=== PATIENT | male | born 1960 | race Caucasian/White ===

== ENCOUNTER 2023-02-11 10:45 | Inpatient (IN) | payer OTHER, SELFPAY ==
[2023-02-11] VITALS (24 sets, daily range): BP systolic 111–157; BP diastolic 50–70; PULSE 68–95; RESP 16–26; TEMP 36.6–36.8; O2SAT 58–100; BMI 41.5
--- NOTE | ~2023-02-11 | XR_ITS ---
XR chest 1V portable 02/11/2023 11:43 Indication: Shortness of breath Procedure: AP portable chest Comparison: No prior studies for comparison. Findings: Cardiomegaly with pulmonary edema. Small right effusion. No pneumothorax. No acute osseous abnormality. Impression: 1: Cardiomegaly with pulmonary edema. Reviewed, dictated and finalized at location [facility] Impression: 1: Cardiomegaly with pulmonary edema.
--- NOTE | ~2023-02-11 | CT_ITS ---
Clinical Indication: Shortness of breath CT Scan of the Chest with Contrast: Technique: Contiguous sections were acquired throughout the chest after intravenous administration of 100 cc of Omnipaque 350. Dose reduction technique was used on this scan by utilizing automated expos ure control and iterative reconstruction technique. The dose-length product (DLP) was 1070.85 mGy-cm. Findings: There is no evidence of any significant mediastinal, hilar or axillary lymphadenopathy. There is no f illing defect in the pulmonary arterial tree to suggest pulmonary embolus. There is no evidence of ao rtic dissection or aneurysm. No pericardial effusion. [id number] right pleural effusion and minimal left pleural effusion present. There is partial right lower lobe atelectasis. There is extensive left lower lobe consolidation, with more mild, patch y airspace disease in the remainder of the pulmonary lobes. Images through the upper abdomen reveal no abnormalities. Impression: Extensive left lung consolidation with more patchy, mild airspace disease in the remainder of the erika gs. Correlate for pulmonary edema/atelectasis versus pneumonia. Pwlvw-kh-wqqslbig right pleural effusion with partial right lower lobe atelectasis. Minimal left pleural effusion. No pulmonary embolus identified. Reviewed, dictated and finalized at [facility]. CRAFTER Impression: Extensive left lung consolidation with more patchy, mild airspace disease in th e remainder of the lungs. Correlate for pulmonary edema/atelectasis versus pneu monia. Jssyr-up-rfmuyijz right pleural effusion with partial right lower lobe atelecta sis. Minimal left pleural effusion. No pulmonary embolus identified.
--- NOTE | 2023-02-11 10:47 | ECG_ITS ---
Measurements Intervals [place] Rate: 97 P: 38 [place]: 155 QRS: -1 QRSD: 144 T: 75 QT: 371 QTc: 473 Interpretive Statements SINUS RHYTHM LEFT BUNDLE BRANCH BLOCK [120+ ms QRS DURATION, 80+ ms Q/S IN V1/V2, 85+ ms R IN I/aVL/V5/V6] LOW VOLTAGE EKG NO PREVIOUS ECG AVAILABLE FOR COMPARISON Electronically Signed On 02-11-2023 19:13:06 PAVER INSTALLER by Mirella Healy M.D.
--- NOTE | 2023-02-11 10:59 | ED.GENADULT ---
HPI - General Adult General Chief complaint: Shortness of Breath/Dyspnea Stated complaint: Respiratory infection Time Seen by Provider: 02/11/23 10:50 History of Present Illness HPI narrative: 62-year-old male presented to ED for evaluation of worsening shortness of breath. Patient reports over the last 3 weeks he has had increased lower extremity edema. Patient has had increased shortness of breath over last few days. Patient began having frothy sputum over the last few days. Patient denies any associated chest pain. Patient does admit to drinking alcohol daily but denies any alcohol withdrawal seizures. Related Data Home Medications Medication Instructions Recorded Confirmed B-complex with vitamin C (Super B 1 tablet PO DAILY 03/30/19 07/14/22 Complex-Vitamin C tablet) ascorbate calcium (vitamin C) 500 500 mg PO DAILY 03/30/19 07/14/22 mg tablet colchicine 0.6 mg tablet (Colcrys) 0.6 mg PO DAILY 03/30/19 07/14/22 magnesium 250 mg tablet 250 mg PO DAILY 03/30/19 07/14/22 multivitamin 1 tablet PO DAILY 03/30/19 07/14/22 omega-3 fatty acids 1,000 mg 1,000 mg PO DAILY 03/30/19 07/14/22 capsule (Fish Oil Concentrate) turmeric 400 mg capsule mg PO 03/30/19 07/14/22 vitamin E (dl, acetate) 450 mg 1,000 unit PO DAILY 03/30/19 07/14/22 (1,000 unit) capsule Allergies Allergy/AdvReac Type Severity Reaction Status Date / Time No Known Allergies Allergy Mild Verified 07/14/22 13:59 Review of Systems Review of Systems: All systems reviewed & are unremarkable except as noted in HPI and below PMFSH Past Medical History Medical History Elevated PSA Surgical History Surgical History History of appendectomy History of arthroscopic knee surgery bilateral Family History Family History Father Hypertension Malignant neoplasm of prostate Mother Hypertension Sibling Family history of diabetes mellitus in first degree relative Patient's sister is in good health Patient's brother is in good health Social History Social History Smoking status: Never smoker Second hand tobacco smoke exposure: No Alcohol intake: current Drinks per week: 84 Alcohol use details: beer Substance use: never Substance use type: does not use Living arrangements: with family Occupation/Education: retired Gender identity (if verbalized by the patient): Male Exam Narrative: APPEARANCE: Respiratory distress upon arrival HEAD: normocephalic, atraumatic. EYES: PERRLA/EOMI, conjunctivae clear. NOSE: Normal no drainage EARS:TMS clear with good light reflex. THROAT: Pharynx clear, no exudate. NECK: Supple. No adenopathy, no masses. RESPIRATORY: rhonchi bilaterally CARDIOVASCULAR: Regular rate and rhythm without murmurs rubs or gallops. ABDOMINAL: Soft, nontender, nondistended, normal bowel sounds MUSCULOSKELETAL: Moves all extremities. lower extremity edema bilaterally NEURO: Alert. Cranial nerves II through XII intact. grossly intact SKIN: Warm, dry. Normal Color Course Course Emergency Course: 62-year-old male presenting to the ED for evaluation of worsening shortness of breath. Upon arrival to emergency department patient has had significant rhonchi and increased work of breathing. ABG was ordered and patient was placed on BiPAP. Patient did feel improved with treatment. Patient was afebrile with no leukocytosis but a stable hemoglobin of 12.2. Patient's D-dimer was elevated at 0.81. No significant abnormalities on his ABG. Hyponatremia on the CMP and an elevated BNP. Patient did test positive for influenza a but was negative for RSV and for COVID. CTA was negative for pulmonary embolism but did show evidence pleural effusions along with pulmonary edema. Patient was treated
[2023-02-11 11:17] LABS: Alveolar/Arterial O2 Gradient 92.6 mmHg; Base Excess ABG 0.2 mEq/l (+/-2.0); Carboxyhemoglobin 1.1 % THb (0-2.0); Device BIPAP; Fractional Inspired Oxygen 30 %; HCO3 ABG 25.4 mEq/l (22.0-26.0); Methemoglobin ABG 0.3 %THb (0-1.5); Modified Allen's Test Pass; Oxygen Content ABG 17.2 %vol (16.0-22.0); Oxygen Saturation ABG 93.9 % (95.0-100.0); Oxyhemoglobin 91.9 % THb (90.0-100.0); PCO2 ABG 43.5 mmHg (35.0-45.0); PO2 ABG 70.2 mmHg (80.0-100.0); PO2 FiO2 Ratio Arterial Blood 2.34 %; Reduced Hemoglobin 6.7 %THb (0-5.0); Site Drawn RIGHT RADIAL; Total Hemoglobin 13.3 g/dL (12.0-18.0); pH ABG 7.385 (7.350-7.450)
[2023-02-11 11:18] LABS: Expiratory Pressure 7 cmH2O; Inspiratory Pressure 14 cmH2O
[2023-02-11 11:24] LABS: Basophils Percent Auto 0.2 % (0.2-1.2); Hematocrit 36.4 % (42.0-52.0); Hemoglobin 12.2 g/dL (14.0-18.0); Immature Granulocyte Absolute 0.01 K/mm3 (0.00-0.031); Immature Granulocyte Percent A 0.2 % (0-0.5); Immature Platelet Fraction Pct 3.7 % (0.9-11.2); Lymphocytes Absolute Auto 0.61 K/mm3 (0.9-3.2); Lymphocytes Percent Auto 11.8 % (18.3-44.2); Mean Corpuscular HGB Conc 33.5 g/dl (32-36); Mean Corpuscular Hemoglobin 32.4 pg (26-34); Mean Corpuscular Volume 96.8 fl (80-100); Mean Platelet Volume 10.3 fl (7.4-10.4); Monocytes Absolute Auto 0.7 K/mm3 (0.1-0.6); Monocytes Percent Auto 14.1 % (2.6-8.5); Neutrophils Absolute Auto 3.8 K/mm3 (1.3-6.7); Neutrophils Percent Auto 73.7 % (45.5-73.1); Platelet Count Result 109 k/mm3 (150-375); Red Blood Count 3.76 M/mm3 (4.6-6.20); Red Cell Distribution Width 13.2 % (11.5-14.5); White Blood Count 5.2 K/mm3 (4.5-10.0)
[2023-02-11 11:31] LABS: Alanine Aminotransferase 29 U/L (6-50); Albumin Level 4.2 g/dL (3.5-5.1); Alkaline Phosphatase 79 U/L (38-126); Anion Gap 9 mmol/L (8-16); Aspartate Amino Transferase 70 U/L (17-59); Bilirubin,Total 1.8 mg/dL (0.2-1.3); Blood Urea Nitrogen 12 mg/dL (9-20); Calcium 8.9 mg/dL (8.4-10.2); Carbon Dioxide 25 mmol/L (22-30); Chloride 92 mmol/L (98-107); Estimated CRCL calculation 146 ml/min; Estimated Glomerular Filt Rate > 60; Glucose 111 mg/dL (65-110); Potassium 4.5 mmol/L (3.4-5.0); Sodium 126 mmol/L (137-145)
[2023-02-11] MEDS: NITROGLYCERIN OINTMENT 1 INCH DOSE TRANSDERM (11:32)
[2023-02-11 11:57] LABS: Influenza A QL RT-PCR Positive (Negative); Influenza B QL RT-PCR Negative (Negative); RSV RNA, RT-PCR Negative (Negative); SARS-CoV-2 RNA PCR Negative (Negative)
[2023-02-11] MEDS: FUROSEMIDE INJ 40 MG/4 ML VIAL IV PUSH ×2 (13:49→20:43)
--- NOTE | 2023-02-11 13:51 | PC.NURSE ---
placed non rebreather per ERP for CT, lasix given per ERP. Pt tolerating non rebreather
[2023-02-11 14:05] LABS: D Dimer 0.81 ug/mL (<0.48)
--- NOTE | 2023-02-11 14:15 | PC.NURSE ---
pt wanted to sit on edge of the bed because he reports his back and buttocks hurt on cot. Both recliners in the ED are occupied at this time pt wants to sit in wc.
[2023-02-11 14:16] LABS: NT Pro B Type Natriuretic Pept 2110 pg/mL (19.9-100)
--- NOTE | 2023-02-11 14:50 | ECG_ITS ---
Measurements Intervals [place] Rate: 86 P: -16 [place]: 104 QRS: 20 QRSD: 146 T: 32 QT: 394 QTc: 473 Interpretive Statements SINUS RHYTHM WITH SHORT [place] INTERVAL LEFT BUNDLE BRANCH BLOCK [120+ ms QRS DURATION, 80+ ms Q/S IN V1/V2, 85+ ms R IN I/aVL/V5/V6] COMPARED TO ECG 02/11/2023 11:00:39 NO SIGNIFICANT CHANGES Electronically Signed On 02-11-2023 19:18:22 SALES ENABLEMENT ANALYST by Mirella Healy M.D.
--- NOTE | 2023-02-11 14:51 | PC.NURSE ---
repeat EKG due to rhythm change on monitor in room 22
--- NOTE | 2023-02-11 16:00 | PC.NURSE ---
recliner available pt moved from wc to recliner for his comfort, no distress.
--- NOTE | 2023-02-11 16:46 | PM.IMHP ---
H&P: HPI History of Present Illness Date/Time: 02/11/23 16:46 Chief Complaint: SOB, Cough Narrative: 62 y/o M presents here with SOB, cough, and BLE edema with PMH of HTN, gout, and ETOH abuse/fatty liver. Patient reports intermittent productive cough and SOB that has worsened and become more consistent, started on Thursday 02/08. Reported body aches. Denied fever, chills, chest pain or palpitations. Initially cough was dry, now producing frothy pink sputum. Has also been experiencing worsening bilateral lower extremity edema for the past 3-6 months, initially intermittent but now more constant in the last 2-3 weeks. ED workup revealed patient to be positive for flu A. CXR showed cardiomegaly with pulmonary edema. CTA of chest showed extensive L sided consolidation - pulm edema v pna, PE ruled out. Lab work showed mild anemia, hyponatremia at 126, and an elevated BNP of 2110. No prior history of congestive heart failure. Does report chronic alcohol use, 12-18 beers daily. Had recent bout of illness a few weeks ago where he was unable to drink. Did experience visual hallucinations. States that his last drink was on Wednesday, 02/08. Currently denying nausea, vomiting, diarrhea, tremors, or hallucinations. Review of Systems Review of Systems: All systems reviewed & are unremarkable except as noted in HPI and below PMFSH Past Medical History Medical History Blow-out fracture of orbital floor Chronic gout without tophus Elevated PSA Erectile dysfunction Essential (primary) hypertension ETOH abuse Fatty liver IFG (impaired fasting glucose) Surgical History Surgical History History of appendectomy History of arthroscopic knee surgery bilateral Family History Family History Father Hypertension Malignant neoplasm of prostate Mother Hypertension Sibling Family history of diabetes mellitus in first degree relative Patient's sister is in good health Patient's brother is in good health Social History Social History Social History: Currently lives at home mostly alone. Currently from , she will still occasionally stay with him. Elects his daughter, Dena Raines as his surrogate decision maker. May also contact his current spouse, Savanah Hart. Son, Wilber Raines may also receive information. Code Status: Full Code. Smoking status: Never smoker Second hand tobacco smoke exposure: No Alcohol intake: current Drinks per week: 60 Alcohol use details: beer Substance use: never Substance use type: does not use Last use: pt stated last drink was Wednesday- pt drinks @ 60 beers and sometimes tequila Lack of Transportation: No Lack of Food: Never True Current Housing: I Have Housing Concerned About Future Housing: No Difficulty Paying Gas/Electric Bills: No Difficulty Paying for Meds: No Currently Unemployed: No Education: High School Diploma/GED Difficulty w/ Childcare or Family Care: No Living arrangements: with family Occupation/Education: retired Gender identity (if verbalized by the patient): Male Spiritual care concerns: No Meds Home Medications and Allergies Home Medications Medication Instructions Recorded Confirmed Type turmeric 400 mg capsule 400 mg PO WEEKLY 03/30/19 02/11/23 History sildenafil 100 mg tablet See Rx Instructions .Route 12/30/21 02/11/23 Rx .COMPLEX #9 tabs allopurinol 100 mg tablet 100 mg PO QPM 02/11/23 02/11/23 History amlodipine 10 mg tablet 10 mg PO QPM 02/11/23 02/11/23 History lisinopril 20 mg tablet 20 mg PO QPM 02/11/23 02/11/23 History Allergies Allergy/AdvReac Type Severity Reaction Status Date / Time No Known Allergies Allergy Mild Verified 07/14/22 13:59 Vital Signs Vital Signs - 24
--- NOTE | 2023-02-11 17:52 | PC.NURSE ---
pt to IMU via wc with registered nurse cardiac, BIPAP and tech. Pt is A/O x 4, no distress, skin pwd. Pt asked to send to new room when she comes back to the ED
--- NOTE | 2023-02-11 18:20 | ADMGEN ---
This patient, Edwin Raines, was admitted to IMU Room 201-01. Patient/family oriented to hospital policies and general routines including ID bracelet, bed and alarms, visiting hours, pain management, procedures, bathroom and other care routines, personal items, smoking policy, room service/diet, and visiting hours. Information on how to activate the Rapid Response Team has been discussed. Patient/Family are encouraged to report perceived risks to care and to ask questions if they do not understand what they are told or what they should do.
[2023-02-11 23:30] LABS: Alveolar/Arterial O2 Gradient 138.3 mmHg; Base Excess ABG 4.2 mEq/l (+/-2.0); Fractional Inspired Oxygen 40 %; HCO3 ABG 28.4 mEq/l (22.0-26.0); Oxygen Content ABG 17.2 %vol (16.0-22.0); Oxygen Saturation ABG 97.8 % (95.0-100.0); Oxyhemoglobin 96.7 % THb (90.0-100.0); PCO2 ABG 41.2 mmHg (35.0-45.0); PO2 ABG 99.5 mmHg (80.0-100.0); PO2 FiO2 Ratio Arterial Blood 2.49 %; Total Hemoglobin 12.6 g/dL (12.0-18.0); pH ABG 7.457 (7.350-7.450)
[2023-02-11 23:31] LABS: Modified Allen's Test Pass; Site Drawn RIGHT RADIAL
[2023-02-11 23:32] LABS: Device NON-INVASIVE VENT; Non-Invasive Expiratory Pressure 7 CMH2O; Non-Invasive Inspiratory Pressure 14 CMH2O; Non-Invasive Vent Rate 4 /MIN
[2023-02-12] VITALS (28 sets, daily range): BP systolic 111–138; BP diastolic 58–74; PULSE 82–103; RESP 18–22; TEMP 36.6–37.3; O2SAT 91–100
--- NOTE | 2023-02-12 | ECHO_ITS ---
Patient Info Name: Edwin Raines Age: 62 years : 1960 Gender: Male Ht: 70 in Wt: 289 lbs BSA: 2.60 m2 HR: 93 bpm BP: 111 / 60 mmHg Heart Rhythm: Sinus Rhythm Technical Quality: Fair Exam Date: 02/12/2023 1:42 PM Exam Location: Echo Lab Patient Status: Inpatient Admit Date: 02/11/2023 Staff Ordering Physician: Mai Sandoval APRN Emergency Medical Dispatcher: Dayanara Centeno RDCS Attending Provider: Erica Martinez MD Referring Physician: Jaime NORRIS; Exam Type: CA echo dop color flow w con Study Info Indications - elevated BNP c/f HF R06.02 - Shortness of breath Complete two-dimensional, color flow and Doppler transthoracic echocardiogram is performed with contrast to opacify the left ventricle and to improve the deliniation of the left ventricle endocardial borders. Contrast/Agitated Saline Contrast/Ag. Saline: Definity Amount: 2.00 ml Administered By: Dayanara Centeno RDCS Existing IV Access: Yes IV Access Condition: patent with no signs of infiltration Summary 1. Technically difficult echocardiogram because of obesity. 2. Definity contrast used to improve visualization. 3. Left ventricular hypertrophy with normal size and preserved systolic function with diastolic non compliance. 4. Mild left atrial enlarged. 5. No significant valvular dysfunction. Left Ventricle Left ventricular chamber dimension is normal. Left ventricular systolic function is normal, estimated at 60-65%. The left ventricular diastolic function is grade II diastolic dysfunction. Right Ventricle Right ventricular chamber dimension is normal. Left Atria Left atrial chamber dimension is mildly enlarged. Right Atria Right atrial chamber dimension is not well visualized. Aortic Valve The aortic valve is normal. Pulmonic Valve The pulmonic valve is not well visualized. Mitral Valve The mitral valve has normal leaflets. Tricuspid Valve The tricuspid valve leaflets are not well visualized. Pericardium/Pleural The pericardium appears normal. Aorta The aortic root size at the sinus of Valsalva is normal. Left Ventricular Outflow Tract Name Value Normal LVOT 2D LVOT Diameter 1.97 cm LVOT Doppler LVOT Peak Gradient 9 mmHg LVOT Mean Gradient 5 mmHg LVOT VTI 24.15 cm LVOT VTI/AV VTI Ratio 0.92 LVOT Stroke Volume 73.64 ml LVOT CO 6.94 l/min LVOT CI 2.67 L/min/m2 Pulmonic Valve Name Value Normal RVOT Doppler RVOT Peak Gradient 5 mmHg PV Doppler PV Peak Gradient 10 mmHg Mitral Valve Name Value
[2023-02-12 00:08] LABS: Glucose Point of Care 90 mg/dl (65-105)
[2023-02-12 00:40] LABS: Lactic Acid Reflex 0.9 mmol/L (0.7-2.0)
[2023-02-12 01:01] LABS: Erythrocyte Sedimentation Rate 47 mm/hr (0-20)
[2023-02-12] MEDS: AZITHROMYCIN 500 MG/NS 250 ML 500 MG/250 ML BAG 250 MG IVPB (01:37)
[2023-02-12 01:51] LABS: Iron 32 ug/dL (49-181)
[2023-02-12 01:55] LABS: CRP 2.3 mg/dL (<1.0); Magnesium 1.9 mg/dL (1.6-2.3)
[2023-02-12 02:00] LABS: Percent Iron Saturation 10 % (20-50)
[2023-02-12 02:14] LABS: Creatinine Urine 50.9 mg/dL; Total Protein Urine Random 11 mg/dL; Ur Ttl Prot Creatinine Ratio 0.22 mg/mg (0-0.20)
[2023-02-12 02:20] LABS: Sodium Urine Random 54 meq/L
[2023-02-12] MEDS: ALBUTEROL SULFATE NEB 2.5 MG/3 ML INH INHALATION ×4 (02:38→20:04)
[2023-02-12] MEDS: IPRATROPIUM BR 0.02% INH SOLN 0.5 MG/2.5 ML VIAL INHALATION ×4 (02:38→20:04)
[2023-02-12 02:58] LABS: Folic Acid 5.9 ng/mL (2.76->20)
[2023-02-12 04:49] LABS: Basophils Percent Auto 0.5 % (0.2-1.2); Hematocrit 35.4 % (42.0-52.0); Hemoglobin 11.7 g/dL (14.0-18.0); Immature Granulocyte Absolute 0.02 K/mm3 (0.00-0.031); Immature Granulocyte Percent A 0.5 % (0-0.5); Immature Platelet Fraction Pct 3.5 % (0.9-11.2); Lymphocytes Absolute Auto 0.37 K/mm3 (0.9-3.2); Lymphocytes Percent Auto 9.3 % (18.3-44.2); Mean Corpuscular HGB Conc 33.1 g/dl (32-36); Mean Corpuscular Hemoglobin 31.9 pg (26-34); Mean Corpuscular Volume 96.5 fl (80-100); Mean Platelet Volume 9.8 fl (7.4-10.4); Monocytes Absolute Auto 0.5 K/mm3 (0.1-0.6); Monocytes Percent Auto 13.6 % (2.6-8.5); Neutrophils Percent Auto 76.1 % (45.5-73.1); Platelet Count Result 108 k/mm3 (150-375); Red Blood Count 3.67 M/mm3 (4.6-6.20); Red Cell Distribution Width 13.1 % (11.5-14.5)
[2023-02-12 05:06] LABS: Alanine Aminotransferase 27 U/L (6-50); Albumin Level 3.8 g/dL (3.5-5.1); Alkaline Phosphatase 77 U/L (38-126); Anion Gap 8 mmol/L (8-16); Aspartate Amino Transferase 70 U/L (17-59); Bilirubin,Total 1.5 mg/dL (0.2-1.3); Blood Urea Nitrogen 15 mg/dL (9-20); Calcium 8.7 mg/dL (8.4-10.2); Carbon Dioxide 27 mmol/L (22-30); Chloride 93 mmol/L (98-107); Cholesterol 108 mg/dL (0-200); Estimated CRCL calculation 144 ml/min; Estimated Glomerular Filt Rate > 60; Glucose 87 mg/dL (65-110); HDL Direct 44 mg/dL; Magnesium 1.8 mg/dL (1.6-2.3); Potassium 3.6 mmol/L (3.4-5.0); Sodium 128 mmol/L (137-145); Triglycerides 70 mg/dL (<150)
[2023-02-12 05:16] LABS: LDL Cholesterol Direct 43 mg/dL
[2023-02-12] MEDS: FOLIC ACID 1 MG TABLET PO (10:01)
[2023-02-12] MEDS: ENOXAPARIN 40 MG/0.4 ML SYRINGE SUB-Q (10:01)
[2023-02-12] MEDS: FUROSEMIDE INJ 40 MG/4 ML VIAL IV PUSH ×2 (10:01→23:00)
[2023-02-12] MEDS: OSELTAMIVIR PHOSPHATE 75 MG CAPSULE PO ×2 (10:02→23:00)
[2023-02-12] MEDS: THIAMINE HCL 200 MG/2 ML VIAL 100 MG IV PUSH (10:02)
[2023-02-12 12:35] LABS: Glucose Point of Care 104 mg/dl (65-105)
[2023-02-12] MEDS: PERFLUTREN LIPID MICROSPHERES 1.5 ML VIAL DILUTED TO 10 ML TOTAL VOLUME IV PUSH (14:00)
--- NOTE | 2023-02-12 14:20 | PM.CNCAR ---
Assessment and Plan Assessment and plan (1) ETOH abuse: Code(s): F10.10 - Alcohol abuse, uncomplicated Status: Acute (2) Essential (primary) hypertension: Code(s): I10 - Essential (primary) hypertension Status: Acute (3) CHF (congestive heart failure): Code(s): I50.9 - Heart failure, unspecified Status: Acute Plan 62-year-old man with hypertension with poor compliance with medical control as well as ethanol excess presents with symptoms of marked lower extremity edema pulmonary congestion and enlargement of the cardiothoracic silhouette on chest x-ray. He appears to have biventricular congestive heart failure. This could easily be a hypertensive myopathy as he apparently has poor compliance with medical therapy. Alcoholic cardiomyopathy of course is also in the differential diagnosis given his excessive drinking of beer. At this time I would continue intravenous furosemide. Echocardiogram was performed to short time ago which I have yet to have read. We will optimize medical therapy for his CHF pending those results. Obviously strict compliance to medication as well as alcohol cessation are extremely important in effective treatment of this patient's congestive heart failure. Diego Gonzales MD [facility] History of Present Illness History of Present Illness Consult date/time: 02/12/23 14:20 Reason For Visit: PULMOONARY EDEMA,RESPIRATORY DISTRESS Narrative: This is a 62-year-old man I am seeing at the request of the hospitalist because of congestive heart failure. The patient is unknown to me prior to this consultation and is not known to have any cardiac problems for what he tells me. This is a gentleman who is morbidly obese he has hypertension and a history of ethanol excess. He receives his medical care from Dr. Pathak and according to those notes he takes his hypertension medication unreliably. He says that he went to the emergency room yesterday because he was feeling poorly he thought he had a virus such as the flu and he also was noticing worsening bilateral lower extremity edema for about 6 months and he thought he would have that checked out while he was there. He does not report that he has significantly concerned about being short of breath he says he does have some chronic dyspnea that he has attributed in the past obesity but that does not seem to be any worse than baseline. In the emergency room he was found to have marked lower extremity edema as well as morbid obesity he has electrocardiogram demonstrating a left bundle branch block with sinus rhythm his chest x-ray appears to show enlargement of the cardiac silhouette as well as pulmonary congestion diffusely in both lung cuevas. He reports a history of excessive alcohol drinking he typically consumes 12 pack of beer per day. 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 He is and has grown children and a number of grandchildren. Review of Systems Constitutional: Constitutional: Reports weakness Eyes: Eyes: Reports no additional eye complaints ENT: Reports system reviewed and no additional complaints, except as documented Cardiovascular: Cardiovascular: Reports pedal edema and Reports leg edema Respiratory: Respiratory: Reports dyspnea on exertion Gastrointestinal: Gastrointestinal: Reports no additional gastrointestinal complaints Musculoskeletal: Musculoskeletal: Reports no additional musculoskeletal complaints Integumentary/Breasts: Skin/Breast: Reports system reviewed and no additional complaints, except as docu Neurologic: Reports system reviewed and no additional complaints, except as documented Endocrine: Endocrine: Reports no additional endocrine complaints Hematologic/Lymphatic: Hematologic/Lymphatic: Reports no additional hematologic/lymphatic complaints Allergic/Immunologic: Allergic/Immunologic: Reports no additional allergic/immunologic complaints [facility]
--- NOTE | 2023-02-12 14:56 | IVDEFINITY ---
Prior to administration of IV Definity the patient was educated on the risks and benefits of the imaging enhancing agent including potential adverse side effects. The patient verbalized understanding. Allergies were verified. No exclusion criteria were identified and at least one of the following inclusion criteria were met: 1) physician request, 2) patient technically difficult to image (per the [place] [employer] Echocardi[employer] guidelines of two or more segments not discernable within the apical view), or 3) questionable left ventricular function. ?
[2023-02-12] MEDS: allopurinoL 100 MG TABLET PO (18:33)
[2023-02-12] MEDS: amLODIPine BESYLATE 5 MG TABLET 10 MG PO (18:34)
[2023-02-12] MEDS: lisinopriL 20 MG TABLET PO (18:34)
--- NOTE | 2023-02-12 19:23 | PM.IMPN ---
Progress Note: A&P Assessment and Plan (1) Acute respiratory distress: Code(s): R06.03 - Acute respiratory distress Status: Acute Assessment and Plan: Patient presents to the emergency room with complaints of shortness of breath. ER noted that the patient was in respiratory distress upon arrival. Chest x-ray shows cardiomegaly with pulmonary edema. CTA of the chest shows extensive left lung consolidation with more patchy mild airspace disease in the remainder the lungs, small to moderate right pleural effusion with atelectasis in the right lower lobe. Minimal left pleural effusion. No PE. ABG 7.38/43/70 on BiPAP. Most likely multifactorial from influenza, bacterial pneumonia and CHF. Patient has been weaned to nasal cannula. Continue antibiotics. Continue antiviral treatments and continue diuretics. Continue to wean oxygen as tolerated. (2) CHF (congestive heart failure): Code(s): I50.9 - Heart failure, unspecified Status: Acute Assessment and Plan: Imaging as mentioned above. BNP 2110. No troponins drawn. He has been started on IV Lasix. Urine output yesterday was 2750 mL. Urine output today is inaccurate. Echocardiogram shows LV hypertrophy with preserved systolic function and grade 2 diastolic dysfunction. Patient with acute diastolic CHF. Clinically improved. Continue Lasix. (3) Pneumonia: Code(s): J18.9 - Pneumonia, unspecified organism Status: Acute Assessment and Plan: CT the chest as mentioned above. He has influenza so consider post viral pneumonia. Blood cultures are pending He has been started on Rocephin and azithromycin. Will add vancomycin today. Check sputum and urine antigens. Check for MRSA. (4) Influenza A: Code(s): J10.1 - Influenza due to other identified influenza virus with other respiratory manifestations Status: Acute Assessment and Plan: Patient's onset of symptoms were 3 days prior to admission. Although he is outside the 48 hour window, patient was severely ill on presentation. Tamiflu is warranted in this situation. Tamiflu started. Symptomatic care (5) ETOH abuse: Code(s): F10.10 - Alcohol abuse, uncomplicated Status: Acute Assessment and Plan: Daily drinke consuming 12-18 beers daily and occasionally hard alcohol. Last drink was Thursday 02/08. Has previously experienced visual hallucinations with cessation. CIWA protocol initiated and score at 1 Continue thiamine and folic acid supplement. Librium and Ativan available as needed (6) Hyponatremia: Code(s): E87.1 - Hypo-osmolality and hyponatremia Status: Acute Assessment and Plan: Sodium 126 on admission. Suspect related to fluid overload. Sodium better with diuresis. Monitor (7) Anemia: Qualifiers: Anemia type: unspecified type Qualified Code(s): D64.9 - Anemia, unspecified Code(s): D64.9 - Anemia, unspecified Status: Acute Assessment and Plan: Hemoglobin 12.2 and was previously 15.4 on 01/27/22. WBC low today at 4000 and Plt count low at 108K. Could be chronic from underlying liver disease and/or acute from viral illness and/or from alcohol toxicity B12 and folate levels okay. He does have iron deficiency Follow Add iron. Check stool guaiac. Add PPI (8) Essential (primary) hypertension: Code(s): I10 - Essential (primary) hypertension Status: Acute Assessment and Plan: Patient's blood pressure was reviewed on 02/12 Blood pressure remains well controlled. Will continue current medications. (9) Left bundle branch block: Code(s): I44.7 - Left bundle-branch block, unspecified Status: Acute Assessment and Plan: EKG in 2019 did not show bundle branch block. No other EKGs to compare. Echo as mentioned above Plan Home Meds/Chronic Conditions - gout: continue home allopurinol - supplements/OTC: continue
[2023-02-12] MEDS: PANTOPRAZOLE SODIUM IV 40 MG VIAL IV PUSH (23:00)
[2023-02-12] MEDS: VANCOMYCIN 1,250 MG/NS 250 ML 1,250 MG/250 ML BAG 166.67 MG IVPB ×2 (23:01)
[2023-02-12] MEDS: WATER FOR IRRIGATION, STERILE 1,000 ML BOTTLE 1000 ML (23:01)
[2023-02-12] MEDS: SALINE 0.65% NAS SOLN 44 ML BTL 1 SPRAY NASAL (23:06)
[2023-02-13] VITALS (26 sets, daily range): BP systolic 115–145; BP diastolic 51–69; PULSE 81–98; RESP 16–20; TEMP 35.8–37.2; O2SAT 86–100
[2023-02-13 00:26] LABS: Glucose Point of Care 99 mg/dl (65-105)
[2023-02-13 01:05] LABS: MRSA (PCR) NOT DETECTED (NOT DETECTE)
[2023-02-13] MEDS: ALBUTEROL SULFATE NEB 2.5 MG/3 ML INH INHALATION ×4 (01:49→20:06)
[2023-02-13] MEDS: IPRATROPIUM BR 0.02% INH SOLN 0.5 MG/2.5 ML VIAL INHALATION ×4 (01:49→20:06)
[2023-02-13] MEDS: AZITHROMYCIN 500 MG/NS 250 ML 500 MG/250 ML BAG 250 MG IVPB (02:30)
[2023-02-13 05:07] LABS: Basophils Percent Auto 0.6 % (0.2-1.2); Hematocrit 34.1 % (42.0-52.0); Hemoglobin 11.6 g/dL (14.0-18.0); Immature Granulocyte Absolute 0.03 K/mm3 (0.00-0.031); Immature Granulocyte Percent A 0.9 % (0-0.5); Immature Platelet Fraction Pct 3.2 % (0.9-11.2); Lymphocytes Absolute Auto 0.47 K/mm3 (0.9-3.2); Lymphocytes Percent Auto 14.2 % (18.3-44.2); Mean Corpuscular Hemoglobin 32.7 pg (26-34); Mean Corpuscular Volume 96.1 fl (80-100); Mean Platelet Volume 9.4 fl (7.4-10.4); Monocytes Absolute Auto 0.5 K/mm3 (0.1-0.6); Monocytes Percent Auto 14.2 % (2.6-8.5); Neutrophils Absolute Auto 2.3 K/mm3 (1.3-6.7); Neutrophils Percent Auto 70.1 % (45.5-73.1); Platelet Count Result 104 k/mm3 (150-375); Red Blood Count 3.55 M/mm3 (4.6-6.20); Red Cell Distribution Width 12.8 % (11.5-14.5); White Blood Count 3.3 K/mm3 (4.5-10.0)
[2023-02-13 05:23] LABS: Alanine Aminotransferase 26 U/L (6-50); Albumin Level 3.4 g/dL (3.5-5.1); Alkaline Phosphatase 80 U/L (38-126); Anion Gap 8 mmol/L (8-16); Aspartate Amino Transferase 63 U/L (17-59); Bilirubin,Total 1.2 mg/dL (0.2-1.3); Blood Urea Nitrogen 13 mg/dL (9-20); Calcium 8.1 mg/dL (8.4-10.2); Carbon Dioxide 28 mmol/L (22-30); Chloride 92 mmol/L (98-107); Estimated CRCL calculation 143 ml/min; Estimated Glomerular Filt Rate > 60; Glucose 85 mg/dL (65-110); Magnesium 1.7 mg/dL (1.6-2.3); Phosphorus 3.2 mg/dL (2.5-4.5); Sodium 128 mmol/L (137-145)
[2023-02-13] MEDS: OSELTAMIVIR PHOSPHATE 75 MG CAPSULE PO ×2 (09:59→21:09)
[2023-02-13] MEDS: POTASSIUM CHLORIDE 20 MEQ ER TABLET PO (10:00)
[2023-02-13] MEDS: FOLIC ACID 1 MG TABLET PO (10:00)
[2023-02-13] MEDS: POTASSIUM CHLORIDE 20 MEQ ER TABLET 40 MEQ PO (10:00)
[2023-02-13] MEDS: ENOXAPARIN 40 MG/0.4 ML SYRINGE SUB-Q (10:00)
[2023-02-13] MEDS: FERROUS SULFATE 325 MG TABLET DR PO (10:00)
[2023-02-13] MEDS: FUROSEMIDE INJ 40 MG/4 ML VIAL IV PUSH ×2 (10:01→21:11)
[2023-02-13] MEDS: PANTOPRAZOLE SODIUM IV 40 MG VIAL IV PUSH ×2 (10:01→21:11)
[2023-02-13] MEDS: MAGNESIUM SULF 2 GM/WATER 50ML 2 GM/50 ML BAG IVPB (10:01)
[2023-02-13] MEDS: THIAMINE HCL 200 MG/2 ML VIAL 100 MG IV PUSH (10:01)
--- NOTE | 2023-02-13 11:09 | PM.PNCARD ---
Progress Note: A&P Assessment and Plan (1) Acute diastolic CHF (congestive heart failure): Code(s): I50.31 - Acute diastolic (congestive) heart failure Status: Acute Assessment and Plan: Patient with CHF with preserved ejection fraction with significant volume overload. -continue IV diuresis, may switch to p.o. furosemide tomorrow. -optimal blood pressure control. Currently on amlodipine and lisinopril. -may add SGLT 2 inhibitor at the time of discharge for CHFpEF. -patient was advised to be compliant with antihypertensives. Low-salt diet counseling was done. (2) Influenza A: Code(s): J10.1 - Influenza due to other identified influenza virus with other respiratory manifestations Status: Acute Assessment and Plan: Management as per primary team. Currently on oseltamivir. (3) ETOH abuse: Code(s): F10.10 - Alcohol abuse, uncomplicated Status: Acute Assessment and Plan: Patient counseled, advised to cut down on alcohol. He verbalized understanding. Subjective Date/time seen: 02/13/23 11:09 Interval history: 02/13/2023: Patient reports improvement in shortness of breath and lower extremity swelling. No chest pain. His echocardiogram showed normal LV systolic function, diastolic dysfunction. Exam Narrative: PHYSICAL EXAMINATION: GENERAL: Alert, oriented, no acute distress MENTAL STATUS: affect appropriate to mood EYES: Extraocular movements intact, no pallor EARS: External ears appear normal, hearing grossly normal NOSE: Normal and patent, no discharge MOUTH: Mucous membranes moist, tongue normal NECK: Supple, no JVD CHEST: Global rhonchi HEART: Normal rate, regular rhythm, normal S1 and S2, S4 gallop ABDOMEN: Soft, nontender NEUROLOGICAL: Alert, oriented, normal speech, no gross motor deficits MUSCULOSKELETAL: No major deformity, no amputation EXTREMITIES: Pedal edema present SKIN: no rash on the exposed area, no cyanosis PSYCHIATRIC: Normal mood, appropriate affect Objective Data Vital Signs Vital Signs: Vital Signs - 24 hr 02/12/23 12:00 02/12/23 14:02 02/12/23 14:03 Temperature 37.3 C Pulse Rate 82 96 Respiratory Rate 20 20 Blood Pressure 136/67 Pulse Oximetry 97 94 Oxygen Delivery Nasal Cannula Oxygen Flow Rate 3 02/12/23 14:10 02/12/23 16:00 02/12/23 12:00 Temperature 37.2 C Pulse Rate 97 89 95 Respiratory Rate 20 19 Blood Pressure 138/58 L Pulse Oximetry 98 Oxygen Delivery Oxygen Flow Rate 02/12/23 14:00 02/12/23 16:00 02/12/23 12:00 Temperature Pulse Rate 87 91 Respiratory Rate Blood Pressure Pulse Oximetry 94 Oxygen Delivery Nasal Cannula Oxygen Flow Rate 2 02/12/23 16:00 02/12/23 18:00 02/12/23 20:04 Temperature Pulse Rate 85 92 Respiratory Rate 20 Blood Pressure Pulse Oximetry 94 Oxygen Delivery Nasal Cannula Oxygen Flow Rate 2 02/12/23 20:05 02/12/23 20:20 02/12/23 19:04 Temperature 36.6 C Pulse Rate 99 86 Respiratory Rate 20 22 H Blood Pressure 126/61 Pulse Oximetry 95 98 Oxygen Delivery Nasal Cannula Oxygen Flow Rate 3 02/12/23 23:44 02/13/23 00:18 02/13/23 01:49 Temperature 36.5 C Pulse Rate 97 87 91 Respiratory Rate 19 20 19 Blood Pressure 145/69 H Pulse Oximetry 93 88 L 93 Oxygen Delivery Autopap Autopap Oxygen Flow Rate 02/13/23 01:50 02/13/23 02:05 02/12/23 23:00 Temperature Pulse Rate 91 90 Respiratory Rate 19 19 Blood Pressure Pulse Oximetry 91 Oxygen Delivery Nasal Cannula Oxygen Flow Rate 2 02/12/23 20:00 02/12/23 22:00 02/13/23 00:00 Temperature Pulse Rate 91 85 98 Respiratory Rate Blood Pressure Pulse Oximetry Oxygen Delivery Oxygen Flow Rate 02/13/23 02:00 02/13/23 05:13 02/13/23 04:00 Temperature 35.8 C L Pulse Rate 85 89 Respiratory Rate 16 Blood Pressure 139/59 L Pulse Oximetry 100 100 Oxygen Delivery Nasa
[2023-02-13 12:39] LABS: Glucose Point of Care 102 mg/dl (65-105)
[2023-02-13] MEDS: allopurinoL 100 MG TABLET PO (14:00)
[2023-02-13] MEDS: amLODIPine BESYLATE 5 MG TABLET 10 MG PO (14:00)
[2023-02-13] MEDS: lisinopriL 20 MG TABLET PO (14:00)
--- NOTE | 2023-02-13 14:14 | PM.IMPN ---
Progress Note: A&P Assessment and Plan (1) Acute respiratory distress: Code(s): R06.03 - Acute respiratory distress Status: Acute Assessment and Plan: Patient presents to the emergency room with complaints of shortness of breath. ER noted that the patient was in respiratory distress upon arrival. Chest x-ray shows cardiomegaly with pulmonary edema. CTA of the chest shows extensive left lung consolidation with more patchy mild airspace disease in the remainder the lungs, small to moderate right pleural effusion with atelectasis in the right lower lobe. Minimal left pleural effusion. No PE. ABG 7.38/43/70 on BiPAP. Most likely multifactorial from influenza, bacterial pneumonia and CHF. Patient has been weaned to nasal cannula. Continue antibiotics. Continue antiviral treatments and continue diuretics. Continue to wean oxygen as tolerated. (2) CHF (congestive heart failure): Code(s): I50.9 - Heart failure, unspecified Status: Acute Assessment and Plan: Imaging as mentioned above. BNP 2110. No troponins drawn. He has been started on IV Lasix. Urine output inaccurate. Echo shows LV hypertrophy with preserved systolic function and grade 2 diastolic dysfunction. Patient with acute diastolic CHF. Clinically improved. Continue Lasix. (3) Pneumonia: Code(s): J18.9 - Pneumonia, unspecified organism Status: Acute Assessment and Plan: CT the chest as mentioned above. He has influenza so consider post viral pneumonia. Blood cultures NGTD Sputum culture pending He was started on Rocephin, azithromycin and vancomycin MRSA nasal swab negative so will stop the Vanco Continue the same. (4) Influenza A: Code(s): J10.1 - Influenza due to other identified influenza virus with other respiratory manifestations Status: Acute Assessment and Plan: Patient's onset of symptoms were 3 days prior to admission. Although he is outside the 48 hour window, patient was severely ill on presentation. Tamiflu is warranted in this situation. Tamiflu started. Symptomatic care (5) ETOH abuse: Code(s): F10.10 - Alcohol abuse, uncomplicated Status: Acute Assessment and Plan: Patient drinks 12-18 beers daily and occasionally hard alcohol. Last drink was Thursday 02/08. Has previously experienced visual hallucinations with cessation. CIWA protocol initiated and score at 0-2 Continue thiamine and folic acid supplement. Librium and Ativan available as needed (6) Hyponatremia: Code(s): E87.1 - Hypo-osmolality and hyponatremia Status: Acute Assessment and Plan: Sodium 126 on admission. Suspect related to fluid overload. Sodium slightly better with diuresis. Monitor (7) Anemia: Qualifiers: Anemia type: unspecified type Qualified Code(s): D64.9 - Anemia, unspecified Code(s): D64.9 - Anemia, unspecified Status: Acute Assessment and Plan: Hemoglobin 12.2 and was previously 15.4 on 01/27/22. WBC low today at 3300 and Plt count low at 104K. Could be chronic from underlying liver disease and/or acute from viral illness and/or from alcohol toxicity B12 and folate levels okay. He does have iron deficiency Continue iron and PPI. Follow (8) Essential (primary) hypertension: Code(s): I10 - Essential (primary) hypertension Status: Acute Assessment and Plan: Patient's blood pressure was reviewed on 02/13 Blood pressure remains well controlled. Will continue current medications. (9) Left bundle branch block: Code(s): I44.7 - Left bundle-branch block, unspecified Status: Acute Assessment and Plan: EKG in 2019 did not show bundle branch block. No other EKGs to compare. Echo as mentioned above Plan Home Meds/Chronic Conditions - gout: continue home allopurinol - supplements/OTC: continue turmeric - ED: hold sildenafil Diet: Heart healthy
[2023-02-13 16:20] LABS: Glucose Point of Care 103 mg/dl (65-105)
--- NOTE | 2023-02-13 20:41 | PC.NURSE ---
This patient, Edwin Raines, was transferred to [ 257] on 02/13/23 at 2042. Personal belongings sent with patient. Report given to [Johnathon DENT ]. Appropriate documentation sent with patient.
[2023-02-14] VITALS (16 sets, daily range): BP systolic 132–140; BP diastolic 56–68; PULSE 77–96; RESP 16–18; TEMP 36.5–36.9; O2SAT 93–97
[2023-02-14] MEDS: IPRATROPIUM BR 0.02% INH SOLN 0.5 MG/2.5 ML VIAL INHALATION ×4 (02:57→20:26)
[2023-02-14] MEDS: ALBUTEROL SULFATE NEB 2.5 MG/3 ML INH INHALATION ×4 (02:58→20:25)
[2023-02-14 06:17] LABS: Basophils Percent Auto 0.9 % (0.2-1.2); Eosinophils Percent Auto 0.3 % (0-4.4); Hematocrit 37.2 % (42.0-52.0); Hemoglobin 12.2 g/dL (14.0-18.0); Immature Granulocyte Absolute 0.02 K/mm3 (0.00-0.031); Immature Granulocyte Percent A 0.6 % (0-0.5); Lymphocytes Absolute Auto 0.68 K/mm3 (0.9-3.2); Lymphocytes Percent Auto 20.1 % (18.3-44.2); Mean Corpuscular HGB Conc 32.8 g/dl (32-36); Mean Corpuscular Hemoglobin 31.6 pg (26-34); Mean Corpuscular Volume 96.4 fl (80-100); Mean Platelet Volume 9.1 fl (7.4-10.4); Monocytes Absolute Auto 0.6 K/mm3 (0.1-0.6); Monocytes Percent Auto 18.9 % (2.6-8.5); Neutrophils Percent Auto 59.2 % (45.5-73.1); Platelet Count Result 113 k/mm3 (150-375); Red Blood Count 3.86 M/mm3 (4.6-6.20); Red Cell Distribution Width 12.9 % (11.5-14.5); White Blood Count 3.4 K/mm3 (4.5-10.0)
[2023-02-14 06:29] LABS: Albumin Level 3.7 g/dL (3.5-5.1); Anion Gap 5 mmol/L (8-16); Blood Urea Nitrogen 12 mg/dL (9-20); Calcium 8.5 mg/dL (8.4-10.2); Carbon Dioxide 32 mmol/L (22-30); Chloride 93 mmol/L (98-107); Estimated CRCL calculation 142 ml/min; Estimated Glomerular Filt Rate > 60; Glucose 89 mg/dL (65-110); Magnesium 1.9 mg/dL (1.6-2.3); Phosphorus 3.3 mg/dL (2.5-4.5); Potassium 3.3 mmol/L (3.4-5.0); Sodium 130 mmol/L (137-145)
[2023-02-14] MEDS: lisinopriL 20 MG TABLET PO (09:25)
[2023-02-14] MEDS: allopurinoL 100 MG TABLET PO (09:25)
[2023-02-14] MEDS: FOLIC ACID 1 MG TABLET PO (09:25)
[2023-02-14] MEDS: POTASSIUM CHLORIDE 20 MEQ ER TABLET 40 MEQ PO (09:25)
[2023-02-14] MEDS: AZITHROMYCIN 250 MG TABLET PO (09:25)
[2023-02-14] MEDS: amLODIPine BESYLATE 5 MG TABLET 10 MG PO (09:25)
[2023-02-14] MEDS: OSELTAMIVIR PHOSPHATE 75 MG CAPSULE PO ×2 (09:25→20:13)
[2023-02-14] MEDS: FERROUS SULFATE 325 MG TABLET DR PO (09:25)
[2023-02-14] MEDS: PANTOPRAZOLE SODIUM IV 40 MG VIAL IV PUSH ×2 (09:27→20:13)
[2023-02-14] MEDS: THIAMINE HCL 200 MG/2 ML VIAL 100 MG IV PUSH (09:27)
[2023-02-14] MEDS: FUROSEMIDE INJ 40 MG/4 ML VIAL IV PUSH ×2 (09:27→20:13)
[2023-02-14] MEDS: ENOXAPARIN 40 MG/0.4 ML SYRINGE SUB-Q (09:27)
--- NOTE | 2023-02-14 14:51 | PM.IMPN ---
Progress Note: A&P Assessment and Plan (1) Acute respiratory distress: Code(s): R06.03 - Acute respiratory distress Status: Acute Assessment and Plan: Patient presents to the emergency room with complaints of shortness of breath. ER noted that the patient was in respiratory distress upon arrival. Chest x-ray shows cardiomegaly with pulmonary edema. CTA of the chest shows extensive left lung consolidation with more patchy mild airspace disease in the remainder the lungs, small to moderate right pleural effusion with atelectasis in the right lower lobe. Minimal left pleural effusion. No PE. ABG 7.38/43/70 on BiPAP. Most likely multifactorial from influenza A, bacterial pneumonia and CHF. Patient has been weaned to nasal cannula. Off BiPAP Continue antibiotics. Continue antiviral treatments and continue diuretics. Continue to wean oxygen as tolerated. (2) CHF (congestive heart failure): Code(s): I50.9 - Heart failure, unspecified Status: Acute Assessment and Plan: Imaging as mentioned above. BNP 2110. No troponins drawn. He has been started on IV Lasix. Urine output inaccurate but he is voiding well. He is down about 7kg Echo shows LV hypertrophy with preserved systolic function and grade 2 diastolic dysfunction. Patient with acute diastolic CHF. Clinically improved. Renal function, electrolytes stable. Continue Lasix. (3) Pneumonia: Code(s): J18.9 - Pneumonia, unspecified organism Status: Acute Assessment and Plan: CT the chest as mentioned above. He has influenza so consider post viral pneumonia. Blood cultures NGTD Sputum culture negative He was started on Rocephin, azithromycin and vancomycin MRSA nasal swab negative Vancomycin stopped Continue abx (4) Influenza A: Code(s): J10.1 - Influenza due to other identified influenza virus with other respiratory manifestations Status: Acute Assessment and Plan: Patient's onset of symptoms were 3 days prior to admission. Although he is outside the 48 hour window, patient was severely ill on presentation. Tamiflu is warranted in this situation. Tamiflu started. Symptomatic care (5) ETOH abuse: Code(s): F10.10 - Alcohol abuse, uncomplicated Status: Acute Assessment and Plan: Patient drinks 12-18 beers daily and occasionally hard alcohol. Last drink was Thursday 02/08. Has previously experienced visual hallucinations with cessation. CIWA protocol initiated and score at 0-2 Continue thiamine and folic acid supplement. Librium and Ativan available as needed (6) Hyponatremia: Code(s): E87.1 - Hypo-osmolality and hyponatremia Status: Acute Assessment and Plan: Sodium 126 on admission. Suspect related to fluid overload. Sodium better with diuresis. Monitor (7) Anemia: Qualifiers: Anemia type: unspecified type Qualified Code(s): D64.9 - Anemia, unspecified Code(s): D64.9 - Anemia, unspecified Status: Acute Assessment and Plan: Hemoglobin 12.2 and was previously 15.4 on 01/27/22. WBC low today at 3300 and Plt count low at 104K. Could be chronic from underlying liver disease and/or acute from viral illness and/or from alcohol toxicity B12 and folate levels okay. He does have iron deficiency hgb stable. Continue iron and PPI. Follow (8) Essential (primary) hypertension: Code(s): I10 - Essential (primary) hypertension Status: Acute Assessment and Plan: Patient's blood pressure was reviewed on 02/14 Blood pressure remains well controlled. Will continue current medications. (9) Left bundle branch block: Code(s): I44.7 - Left bundle-branch block, unspecified Status: Acute Assessment and Plan: EKG in 2019 did not show bundle branch block. No other EKGs to compare. Echo as mentioned above Plan Home Meds/Chronic Conditions - gout: continue home allopur
[2023-02-14 22:25] LABS: Osmolality, Urine 386 mOsm/kg (50-1200)
--- NOTE | 2023-02-14 22:41 | PC.NURSE ---
2129- report received from Yari. upon arrival patient awake resting in bed, requested EZEQUIEL shook, denies pain and no s/s of distress. bed in lower position with call light in hand and 2 side rails up. white board updated. Care continued
[2023-02-15] VITALS (14 sets, daily range): BP systolic 119–134; BP diastolic 53–57; PULSE 80–93; RESP 18–20; TEMP 37.1; O2SAT 90–100
[2023-02-15] MEDS: ALBUTEROL SULFATE NEB 2.5 MG/3 ML INH INHALATION ×4 (02:12→20:46)
[2023-02-15] MEDS: IPRATROPIUM BR 0.02% INH SOLN 0.5 MG/2.5 ML VIAL INHALATION ×4 (02:12→20:46)
[2023-02-15 05:31] LABS: Hematocrit 35.5 % (42.0-52.0); Hemoglobin 11.8 g/dL (14.0-18.0); Immature Platelet Fraction Pct 2.3 % (0.9-11.2); Mean Corpuscular HGB Conc 33.2 g/dl (32-36); Mean Corpuscular Hemoglobin 32.1 pg (26-34); Mean Corpuscular Volume 96.5 fl (80-100); Mean Platelet Volume 9.2 fl (7.4-10.4); Platelet Count Result 116 k/mm3 (150-375); Red Blood Count 3.68 M/mm3 (4.6-6.20); Red Cell Distribution Width 12.9 % (11.5-14.5); White Blood Count 2.9 K/mm3 (4.5-10.0)
[2023-02-15 05:38] LABS: Alanine Aminotransferase 34 U/L (6-50); Albumin Level 3.5 g/dL (3.5-5.1); Alkaline Phosphatase 78 U/L (38-126); Anion Gap 2 mmol/L (8-16); Aspartate Amino Transferase 72 U/L (17-59); Bilirubin,Total 1.3 mg/dL (0.2-1.3); Blood Urea Nitrogen 12 mg/dL (9-20); Calcium 8.5 mg/dL (8.4-10.2); Carbon Dioxide 36 mmol/L (22-30); Chloride 93 mmol/L (98-107); Estimated CRCL calculation 123 ml/min; Estimated Glomerular Filt Rate > 60; Glucose 87 mg/dL (65-110); Magnesium 1.9 mg/dL (1.6-2.3); Potassium 3.1 mmol/L (3.4-5.0); Sodium 131 mmol/L (137-145)
[2023-02-15] MEDS: amLODIPine BESYLATE 5 MG TABLET 10 MG PO (08:38)
[2023-02-15] MEDS: FOLIC ACID 1 MG TABLET PO (08:39)
[2023-02-15] MEDS: OSELTAMIVIR PHOSPHATE 75 MG CAPSULE PO ×2 (08:39→20:32)
[2023-02-15] MEDS: lisinopriL 20 MG TABLET PO (08:39)
[2023-02-15] MEDS: THIAMINE HCL 100 MG TABLET PO (08:39)
[2023-02-15] MEDS: allopurinoL 100 MG TABLET PO (08:39)
[2023-02-15] MEDS: FERROUS SULFATE 325 MG TABLET DR PO (08:39)
[2023-02-15] MEDS: PANTOPRAZOLE SODIUM IV 40 MG VIAL IV PUSH ×2 (08:40→20:32)
[2023-02-15] MEDS: FUROSEMIDE INJ 40 MG/4 ML VIAL IV PUSH ×2 (08:40→20:32)
[2023-02-15] MEDS: ENOXAPARIN 40 MG/0.4 ML SYRINGE SUB-Q (08:41)
[2023-02-15] MEDS: AZITHROMYCIN 250 MG TABLET PO (08:41)
--- NOTE | 2023-02-15 10:50 | PM.PNCARD ---
Progress Note: A&P Assessment and Plan (1) Acute diastolic CHF (congestive heart failure): Code(s): I50.31 - Acute diastolic (congestive) heart failure Status: Acute Assessment and Plan: Patient with CHF with preserved ejection fraction with significant volume overload. -continue IV diuresis. Extra 20 mg IV furosemide now. Replace potassium with 40 mEq p.o. x1 now -optimal blood pressure control. Currently on amlodipine and lisinopril. -may add SGLT 2 inhibitor at the time of discharge for CHFpEF. -patient was advised to be compliant with antihypertensives. Low-salt diet counseling was done. (2) Influenza A: Code(s): J10.1 - Influenza due to other identified influenza virus with other respiratory manifestations Status: Acute Assessment and Plan: Management as per primary team. Currently on oseltamivir. (3) ETOH abuse: Code(s): F10.10 - Alcohol abuse, uncomplicated Status: Acute Assessment and Plan: Patient counseled, advised to cut down on alcohol. He verbalized understanding. Subjective Date/time seen: 02/15/23 10:50 Interval history: 62-year-old admitted with shortness of breath, CHF, influenza a Date of service 02/15/2023: Swelling is better with still problematic and significant bilateral lower extremities. No chest pain. No shortness of breath Review of Systems Constitutional: Constitutional: Reports weakness Eyes: Eyes: Reports no additional eye complaints ENT: Reports system reviewed and no additional complaints, except as documented Cardiovascular: Cardiovascular: Reports pedal edema, Reports leg edema and Reports dyspnea on exertion Respiratory: Respiratory: Reports dyspnea on exertion Gastrointestinal: Gastrointestinal: Reports no additional gastrointestinal complaints Musculoskeletal: Musculoskeletal: Reports no additional musculoskeletal complaints Integumentary/Breasts: Skin/Breast: Reports system reviewed and no additional complaints, except as docu Neurologic: Reports system reviewed and no additional complaints, except as documented and Reports weakness Endocrine: Endocrine: Reports no additional endocrine complaints Hematologic/Lymphatic: Hematologic/Lymphatic: Reports no additional hematologic/lymphatic complaints Allergic/Immunologic: Allergic/Immunologic: Reports no additional allergic/immunologic complaints Exam Const: General: comfortable Other: Morbidly obese white male wearing face mask oxygen watching television reporting no symptoms currently HENMT: Mouth: Yes moist mucous membranes Eyes: Sclera: sclerae normal Neck: Neck: supple Other: Normal carotid upstrokes bilaterally. Very difficult to assess venous distention given his body habitus Resp: Other: A prolonged expiratory phase with coarse expiratory rhonchi in both lung cuevas Cardio: Rhythm: regular rhythm Other: PMI is not palpable, no audible gallop or murmur GI: Auscultation: normal bowel sounds Skin: General skin exam: normal color Neuro: Speech: normal speech Other: Alert and oriented x3 Extrem: Other: Patient has marked chronic lower extremity edema with changes of venous stasis Psych: Mental Status: mental status grossly normal Objective Data Vital Signs Vital Signs: Vital Signs - 24 hr 02/14/23 12:00 02/14/23 15:13 02/14/23 15:28 Temperature Pulse Rate 96 85 89 Respiratory Rate 18 18 Blood Pressure Pulse Oximetry Oxygen Delivery Oxygen Flow Rate 02/14/23 16:00 02/14/23 16:00 02/14/23 20:02 Temperature 36.5 C 36.9 C Pulse Rate 86 85 87 Respiratory Rate 16 18 Blood Pressure 140/60 139/56 L Pulse Oximetry 97 94 Oxygen Delivery Oxygen Flow Rate 02/14/23 20:26 02/14/23 20:33 02/14/23 20:39 Temperature Pulse Rate 87 87 85 Respiratory Rate 18 18 Blood Pressure Pulse Oximetry 93 Oxygen Delivery Nasal Cannula Oxygen Flow Rate 1.5
--- NOTE | 2023-02-15 11:03 | PM.IMPN ---
Progress Note: A&P Assessment and Plan (1) Acute respiratory distress: Code(s): R06.03 - Acute respiratory distress Status: Acute Assessment and Plan: Patient presents to the emergency room with complaints of shortness of breath. ER noted that the patient was in respiratory distress upon arrival. Chest x-ray shows cardiomegaly with pulmonary edema. CTA of the chest shows extensive left lung consolidation with more patchy mild airspace disease in the remainder the lungs, small to moderate right pleural effusion with atelectasis in the right lower lobe. Minimal left pleural effusion. No PE. ABG 7.38/43/70 on BiPAP. Most likely multifactorial from influenza A, bacterial pneumonia and CHF. Patient has been weaned to nasal cannula. Off BiPAP Continue antibiotics. Continue antiviral treatments and continue diuretics. Continue to wean oxygen as tolerated. (2) CHF (congestive heart failure): Code(s): I50.9 - Heart failure, unspecified Status: Acute Assessment and Plan: Imaging as mentioned above. BNP 2110. No troponins drawn. He has been started on IV Lasix. Urine output inaccurate but he is voiding well. He is down about 7kg Echo shows LV hypertrophy with preserved systolic function and grade 2 diastolic dysfunction. Patient with acute diastolic CHF. Negative fluid balance Clinically improved. Renal function, electrolytes stable. Continue Lasix IV. (3) Pneumonia: Code(s): J18.9 - Pneumonia, unspecified organism Status: Acute Assessment and Plan: CT the chest as mentioned above. He has influenza so consider post viral pneumonia. Blood cultures NGTD Sputum culture negative He was started on Rocephin, azithromycin and vancomycin MRSA nasal swab negative Vancomycin stopped Continue abx (4) Influenza A: Code(s): J10.1 - Influenza due to other identified influenza virus with other respiratory manifestations Status: Acute Assessment and Plan: Patient's onset of symptoms were 3 days prior to admission. Although he is outside the 48 hour window, patient was severely ill on presentation. Tamiflu is warranted in this situation. Continue Tamiflu1. Symptomatic care (5) ETOH abuse: Code(s): F10.10 - Alcohol abuse, uncomplicated Status: Acute Assessment and Plan: Patient drinks 12-18 beers daily and occasionally hard alcohol. Last drink was Thursday 02/08. Has previously experienced visual hallucinations with cessation. CIWA protocol initiated and score at 0-2 Continue thiamine and folic acid supplement. Librium and Ativan available as needed (6) Hyponatremia: Code(s): E87.1 - Hypo-osmolality and hyponatremia Status: Acute Assessment and Plan: Sodium 126 on admission. Suspect related to fluid overload. Sodium better with diuresis. Monitor (7) Anemia: Qualifiers: Anemia type: unspecified type Qualified Code(s): D64.9 - Anemia, unspecified Code(s): D64.9 - Anemia, unspecified Status: Acute Assessment and Plan: Hemoglobin 12.2 and was previously 15.4 on 01/27/22. WBC low today at 3300 and Plt count low at 104K. Could be chronic from underlying liver disease and/or acute from viral illness and/or from alcohol toxicity B12 and folate levels okay. He does have iron deficiency hgb stable. Continue iron and PPI. Follow (8) Essential (primary) hypertension: Code(s): I10 - Essential (primary) hypertension Status: Acute Assessment and Plan: Patient's blood pressure was reviewed on 02/15 Blood pressure remains well controlled. Will continue current medications. (9) Left bundle branch block: Code(s): I44.7 - Left bundle-branch block, unspecified Status: Acute Assessment and Plan: EKG in 2019 did not show bundle branch block. No other EKGs to compare. Echo as mentioned above Plan Home Meds/Chronic Conditions
[2023-02-15] MEDS: POTASSIUM CHLORIDE 20 MEQ ER TABLET 40 MEQ PO (12:16)
[2023-02-15] MEDS: FUROSEMIDE INJ 40 MG/4 ML VIAL 20 MG IV PUSH (12:17)
[2023-02-15 18:20] LABS: Pneumococcal Antigen Urine Not Detected (Not Detected)
[2023-02-15] MEDS: AMOXICILLIN/CLAVULANATE K 875-125 MG TAB 1 TABLET PO (20:32)
--- NOTE | 2023-02-15 22:12 | PC.NURSE ---
2130 received report from Yari. upon assessment patient resting in bed, side rails up and call light in hand. no s/s of distress. VSS, denies pain. care continued
[2023-02-16] VITALS (16 sets, daily range): BP systolic 113–135; BP diastolic 52–57; PULSE 82–97; RESP 16–20; TEMP 36.6–37.1; O2SAT 90–95
[2023-02-16] MEDS: ALBUTEROL SULFATE NEB 2.5 MG/3 ML INH INHALATION ×4 (02:12→20:21)
[2023-02-16] MEDS: IPRATROPIUM BR 0.02% INH SOLN 0.5 MG/2.5 ML VIAL INHALATION ×4 (02:13→20:21)
[2023-02-16 03:21] LABS: Legionella pneumophila Ag Ur Not Detected (Not Detected)
[2023-02-16 06:26] LABS: Basophils Absolute Auto 0.1 K/mm3 (0.0-0.1); Basophils Percent Auto 1.7 % (0.2-1.2); Eosinophils Absolute Auto 0.1 K/mm3 (0-0.3); Eosinophils Percent Auto 4.1 % (0-4.4); Hematocrit 38.4 % (42.0-52.0); Hemoglobin 12.6 g/dL (14.0-18.0); Immature Granulocyte Absolute 0.01 K/mm3 (0.00-0.031); Immature Granulocyte Percent A 0.3 % (0-0.5); Lymphocytes Absolute Auto 1.11 K/mm3 (0.9-3.2); Lymphocytes Percent Auto 32.3 % (18.3-44.2); Mean Corpuscular HGB Conc 32.8 g/dl (32-36); Mean Corpuscular Hemoglobin 31.7 pg (26-34); Mean Corpuscular Volume 96.7 fl (80-100); Mean Platelet Volume 9.4 fl (7.4-10.4); Monocytes Absolute Auto 0.6 K/mm3 (0.1-0.6); Neutrophils Absolute Auto 1.5 K/mm3 (1.3-6.7); Neutrophils Percent Auto 43.6 % (45.5-73.1); Platelet Count Result 109 k/mm3 (150-375); Red Blood Count 3.97 M/mm3 (4.6-6.20); Red Cell Distribution Width 12.8 % (11.5-14.5); White Blood Count 3.4 K/mm3 (4.5-10.0)
[2023-02-16 06:51] LABS: Albumin Level 3.8 g/dL (3.5-5.1); Anion Gap 6 mmol/L (8-16); Blood Urea Nitrogen 11 mg/dL (9-20); Calcium 8.6 mg/dL (8.4-10.2); Carbon Dioxide 34 mmol/L (22-30); Chloride 93 mmol/L (98-107); Estimated CRCL calculation 122 ml/min; Estimated Glomerular Filt Rate > 60; Glucose 100 mg/dL (65-110); Magnesium 1.8 mg/dL (1.6-2.3); Phosphorus 3.4 mg/dL (2.5-4.5); Potassium 3.3 mmol/L (3.4-5.0); Sodium 133 mmol/L (137-145)
[2023-02-16] MEDS: AZITHROMYCIN 250 MG TABLET PO (09:01)
[2023-02-16] MEDS: MAGNESIUM SULF 2 GM/WATER 50ML 2 GM/50 ML BAG IVPB (09:01)
[2023-02-16] MEDS: allopurinoL 100 MG TABLET PO (09:01)
[2023-02-16] MEDS: amLODIPine BESYLATE 5 MG TABLET 10 MG PO (09:01)
[2023-02-16] MEDS: AMOXICILLIN/CLAVULANATE K 875-125 MG TAB 1 TABLET PO ×2 (09:01→21:14)
[2023-02-16] MEDS: POTASSIUM CHLORIDE 20 MEQ ER TABLET 40 MEQ PO (09:01)
[2023-02-16] MEDS: OSELTAMIVIR PHOSPHATE 75 MG CAPSULE PO ×2 (09:02→21:14)
[2023-02-16] MEDS: FOLIC ACID 1 MG TABLET PO (09:02)
[2023-02-16] MEDS: THIAMINE HCL 100 MG TABLET PO (09:02)
[2023-02-16] MEDS: lisinopriL 20 MG TABLET PO (09:02)
[2023-02-16] MEDS: FERROUS SULFATE 325 MG TABLET DR PO (09:02)
[2023-02-16] MEDS: FUROSEMIDE INJ 40 MG/4 ML VIAL IV PUSH ×2 (09:09→21:14)
[2023-02-16] MEDS: PANTOPRAZOLE SODIUM IV 40 MG VIAL IV PUSH ×2 (09:09→21:14)
[2023-02-16] MEDS: ENOXAPARIN 40 MG/0.4 ML SYRINGE SUB-Q (09:09)
--- NOTE | 2023-02-16 15:07 | PM.IMPN ---
Progress Note: A&P Assessment and Plan (1) Acute respiratory distress: Code(s): R06.03 - Acute respiratory distress Status: Acute Assessment and Plan: Patient presents to the emergency room with complaints of shortness of breath. ER noted that the patient was in respiratory distress upon arrival. Chest x-ray shows cardiomegaly with pulmonary edema. CTA of the chest shows extensive left lung consolidation with more patchy mild airspace disease in the remainder the lungs, small to moderate right pleural effusion with atelectasis in the right lower lobe. Minimal left pleural effusion. No PE. ABG 7.38/43/70 on BiPAP. Most likely multifactorial from influenza A, bacterial pneumonia and CHF. Patient required BiPAP and was weaned to nasal cannula and now to room air. Continue antibiotics and antiviral treatments Still with congestion and significant pedal edema: continue diuretics. Explained that he will have pedal edema at discharge but that it should improve with time and chronic diuretics (2) CHF (congestive heart failure): Code(s): I50.9 - Heart failure, unspecified Status: Acute Assessment and Plan: Imaging as mentioned above. BNP 2110. No troponins drawn. He has been started on IV Lasix. Urine output inaccurate but he is voiding well. He is down about 10kg Echo shows LV hypertrophy with preserved systolic function and grade 2 diastolic dysfunction. Patient with acute diastolic CHF. Clinically improved. Renal function, electrolytes stable. Continue Lasix IV. Add metolazone (3) Pneumonia: Code(s): J18.9 - Pneumonia, unspecified organism Status: Acute Assessment and Plan: CT the chest as mentioned above. He has influenza so consider post-viral bacterial pneumonia. Blood cultures NGTD Sputum culture negative He was started on Rocephin, azithromycin and vancomycin MRSA nasal swab negative so Vancomycin stopped He completed azithromycin. Rocephin changed to Augmentin. Continue to complete a course (4) Influenza A: Code(s): J10.1 - Influenza due to other identified influenza virus with other respiratory manifestations Status: Acute Assessment and Plan: Patient's onset of symptoms were 3 days prior to admission. Although he is outside the 48 hour window, patient was severely ill on presentation. Tamiflu is warranted in this situation. Continue Tamiflu. Symptomatic care (5) ETOH abuse: Code(s): F10.10 - Alcohol abuse, uncomplicated Status: Acute Assessment and Plan: Patient drinks 12-18 beers daily and occasionally hard alcohol. Last drink was Thursday 02/08. Has previously experienced visual hallucinations with cessation but nothing here. CIWA protocol initiated and score at 0-2 He was educated about the benefits of abstaining from alcohol use Continue thiamine and folic acid supplement. Librium and Ativan available as needed (6) Hyponatremia: Code(s): E87.1 - Hypo-osmolality and hyponatremia Status: Acute Assessment and Plan: Sodium 126 on admission. Suspect related to fluid overload. Sodium better with diuresis. Monitor (7) Anemia: Qualifiers: Anemia type: unspecified type Qualified Code(s): D64.9 - Anemia, unspecified Code(s): D64.9 - Anemia, unspecified Status: Acute Assessment and Plan: Hemoglobin 12.2 and was previously 15.4 on 01/27/22. WBC low today at 3300 and Plt count low at 104K. Could be chronic from underlying liver disease and/or acute from viral illness and/or from alcohol toxicity B12 and folate levels okay. He does have iron deficiency (ferritin elevated as acute phase reactant) Hgb stable. Stool guaiac ordered Continue iron and PPI. Follow (8) Essential (primary) hypertension: Code(s): I10 - Essential (primary) hypertension Status: Acute Assessment and Plan: Patient's blood pressure was reviewed on 02/16 Jason
[2023-02-16] MEDS: metOLazone 2.5 MG TABLET PO (16:14)
[2023-02-17] VITALS: BP 123/55; PULSE 96; RESP 20; TEMP 37.2; O2SAT 94
[2023-02-17 04:15] VITALS: BP 136/53; PULSE 85; RESP 20; TEMP 37.3; O2SAT 95
[2023-02-17 06:27] LABS: Basophils Percent Auto 1.1 % (0.2-1.2); Eosinophils Absolute Auto 0.3 K/mm3 (0-0.3); Eosinophils Percent Auto 6.8 % (0-4.4); Hematocrit 38.2 % (42.0-52.0); Hemoglobin 12.5 g/dL (14.0-18.0); Immature Granulocyte Absolute 0.03 K/mm3 (0.00-0.031); Immature Granulocyte Percent A 0.8 % (0-0.5); Immature Platelet Fraction Pct 4.8 % (0.9-11.2); Lymphocytes Absolute Auto 1.06 K/mm3 (0.9-3.2); Lymphocytes Percent Auto 28.9 % (18.3-44.2); Mean Corpuscular HGB Conc 32.7 g/dl (32-36); Mean Corpuscular Hemoglobin 31.5 pg (26-34); Mean Corpuscular Volume 96.2 fl (80-100); Mean Platelet Volume 10.5 fl (7.4-10.4); Monocytes Absolute Auto 0.7 K/mm3 (0.1-0.6); Monocytes Percent Auto 17.7 % (2.6-8.5); Neutrophils Absolute Auto 1.6 K/mm3 (1.3-6.7); Neutrophils Percent Auto 44.7 % (45.5-73.1); Platelet Count Result 117 k/mm3 (150-375); Red Blood Count 3.97 M/mm3 (4.6-6.20); Red Cell Distribution Width 12.7 % (11.5-14.5); White Blood Count 3.7 K/mm3 (4.5-10.0)
[2023-02-17 06:30] LABS: Anion Gap 6 mmol/L (8-16); Blood Urea Nitrogen 11 mg/dL (9-20); Calcium 9.1 mg/dL (8.4-10.2); Carbon Dioxide 36 mmol/L (22-30); Chloride 90 mmol/L (98-107); Estimated CRCL calculation 120 ml/min; Estimated Glomerular Filt Rate > 60; Glucose 91 mg/dL (65-110); Magnesium 1.9 mg/dL (1.6-2.3); Potassium 3.2 mmol/L (3.4-5.0); Sodium 132 mmol/L (137-145)
[2023-02-17 08:14] VITALS: O2SAT 91
[2023-02-17] MEDS: metOLazone 2.5 MG TABLET PO (08:27)
[2023-02-17] MEDS: FERROUS SULFATE 325 MG TABLET DR PO (08:28)
[2023-02-17] MEDS: amLODIPine BESYLATE 5 MG TABLET 10 MG PO (08:28)
[2023-02-17] MEDS: THIAMINE HCL 100 MG TABLET PO (08:29)
[2023-02-17] MEDS: FOLIC ACID 1 MG TABLET PO (08:29)
[2023-02-17] MEDS: lisinopriL 20 MG TABLET PO (08:29)
[2023-02-17] MEDS: AMOXICILLIN/CLAVULANATE K 875-125 MG TAB 1 TABLET PO ×2 (08:29→19:45)
[2023-02-17] MEDS: allopurinoL 100 MG TABLET PO (08:30)
[2023-02-17] MEDS: PANTOPRAZOLE SODIUM IV 40 MG VIAL IV PUSH ×2 (08:30→19:46)
[2023-02-17] MEDS: FUROSEMIDE INJ 40 MG/4 ML VIAL IV PUSH ×2 (08:32→19:45)
[2023-02-17] MEDS: ENOXAPARIN 40 MG/0.4 ML SYRINGE SUB-Q (08:32)
[2023-02-17] MEDS: ALBUTEROL SULFATE NEB 2.5 MG/3 ML INH INHALATION (08:37)
[2023-02-17] MEDS: IPRATROPIUM BR 0.02% INH SOLN 0.5 MG/2.5 ML VIAL INHALATION (08:38)
[2023-02-17 08:44] VITALS: PULSE 88; RESP 20
[2023-02-17 08:53] VITALS: PULSE 87; RESP 20
--- NOTE | 2023-02-17 10:15 | PM.PNCARD ---
Progress Note: A&P Assessment and Plan (1) Acute diastolic CHF (congestive heart failure): Code(s): I50.31 - Acute diastolic (congestive) heart failure Status: Acute Assessment and Plan: Patient with CHF with preserved ejection fraction with significant volume overload. -continue IV diuresis and I agree with metolazone also. His potassium is low at 3.2 and I will replace with KCL 40 mEq p.o. x1 -optimal blood pressure control. Currently on amlodipine and lisinopril. -may add SGLT 2 inhibitor at the time of discharge for CHFpEF. -patient was advised to be compliant with antihypertensives. Low-salt diet counseling was done. (2) Influenza A: Code(s): J10.1 - Influenza due to other identified influenza virus with other respiratory manifestations Status: Acute Assessment and Plan: Management as per primary team. Currently on oseltamivir. (3) ETOH abuse: Code(s): F10.10 - Alcohol abuse, uncomplicated Status: Acute Assessment and Plan: Patient counseled, advised to cut down on alcohol. He verbalized understanding. Subjective Date/time seen: 02/17/23 10:15 Interval history: 62-year-old admitted with shortness of breath, CHF, influenza a Date of service 02/15/2023: Swelling is better with still problematic and significant bilateral lower extremities. No chest pain. No shortness of breath Date of service 02/17/2023: Legs are still swollen but better. No chest pain, shortness of breath Review of Systems Constitutional: Constitutional: Reports weakness Eyes: Eyes: Reports no additional eye complaints ENT: Reports system reviewed and no additional complaints, except as documented Cardiovascular: Cardiovascular: Reports pedal edema, Reports leg edema and Reports dyspnea on exertion Respiratory: Respiratory: Reports dyspnea on exertion Gastrointestinal: Gastrointestinal: Reports no additional gastrointestinal complaints Musculoskeletal: Musculoskeletal: Reports no additional musculoskeletal complaints Integumentary/Breasts: Skin/Breast: Reports system reviewed and no additional complaints, except as docu Neurologic: Reports system reviewed and no additional complaints, except as documented and Reports weakness Endocrine: Endocrine: Reports no additional endocrine complaints Hematologic/Lymphatic: Hematologic/Lymphatic: Reports no additional hematologic/lymphatic complaints Allergic/Immunologic: Allergic/Immunologic: Reports no additional allergic/immunologic complaints Exam Const: General: comfortable Other: Morbidly obese white male wearing face mask oxygen watching television reporting no symptoms currently HENMT: Mouth: Yes moist mucous membranes Eyes: Sclera: sclerae normal Neck: Neck: supple Other: Normal carotid upstrokes bilaterally. Very difficult to assess venous distention given his body habitus Resp: Other: A prolonged expiratory phase with coarse expiratory rhonchi in both lung cuevas Cardio: Rhythm: regular rhythm Other: PMI is not palpable, no audible gallop or murmur GI: Auscultation: normal bowel sounds Skin: General skin exam: normal color Neuro: Speech: normal speech Other: Alert and oriented x3 Extrem: Other: 1 to 2+ bilateral lower extremity edema Psych: Mental Status: mental status grossly normal Objective Data Vital Signs Vital Signs: Vital Signs - 24 hr 02/16/23 13:32 02/16/23 13:46 02/16/23 14:03 Temperature 36.6 C Pulse Rate 92 95 94 Respiratory Rate 18 18 18 Blood Pressure 113/57 L Pulse Oximetry 95 Oxygen Delivery 02/16/23 20:13 02/16/23 20:24 02/16/23 20:41 Temperature 37.1 C Pulse Rate 82 88 90 Respiratory Rate 20 18 18 Blood Pressure 130/52 L Pulse Oximetry 91 Oxygen Delivery 02/17/23 00:00 02/17/23 04:15 02/16/23 21:00 Temperature 37.2 C 37.3 C Pulse Rate 96 85 Respiratory Rate 20 20 Blood Pressure 123/55 L 13
[2023-02-17] MEDS: POTASSIUM CHLORIDE 20 MEQ ER TABLET 40 MEQ PO (10:46)
--- NOTE | 2023-02-17 14:52 | P.PNIM_ITS ---
Progress Note: A&P Assessment and Plan (1) Acute respiratory distress: Code(s): R06.03 - Acute respiratory distress Status: Acute Assessment and Plan: Patient presents to the emergency room with complaints of shortness of breath. ER noted that the patient was in respiratory distress upon arrival. Chest x-ray shows cardiomegaly with pulmonary edema. CTA of the chest shows extensive left lung consolidation with more patchy mild airspace disease in the remainder the lungs, small to moderate right pleural effusion with atelectasis in the right lower lobe. Minimal left pleural effusion. No PE. ABG 7.38/43/70 on BiPAP. Most likely multifactorial from influenza A, bacterial pneumonia and CHF. Patient required BiPAP and was weaned to nasal cannula and now to room air. Continue antibiotics and antiviral treatments Still with congestion and significant pedal edema: continue diuretics. Explained that he will have pedal edema at discharge but that it should improve with time and chronic diuretics (2) CHF (congestive heart failure): Code(s): I50.9 - Heart failure, unspecified Status: Acute Assessment and Plan: Imaging as mentioned above. BNP 2110. No troponins drawn. He has been started on IV Lasix. Urine output inaccurate but he is voiding well. He is down about 10kg Echo shows LV hypertrophy with preserved systolic function and grade 2 diastolic dysfunction. Patient with acute diastolic CHF. Clinically improved. Renal function, electrolytes stable. Continue Lasix IV. Add metolazone 02/17: Still significant edema, 1 more day of IV diuresis, anticipate discharge home tomorrow on oral diuretics (3) Pneumonia: Code(s): J18.9 - Pneumonia, unspecified organism Status: Acute Assessment and Plan: CT the chest as mentioned above. He has influenza so consider post-viral bacterial pneumonia. Blood cultures NGTD Sputum culture negative He was started on Rocephin, azithromycin and vancomycin MRSA nasal swab negative so Vancomycin stopped He completed azithromycin. Rocephin changed to Augmentin. Continue to complete a course (4) Influenza A: Code(s): J10.1 - Influenza due to other identified influenza virus with other respiratory manifestations Status: Acute Assessment and Plan: Patient's onset of symptoms were 3 days prior to admission. Although he is outside the 48 hour window, patient was severely ill on presentation. Tamiflu is warranted in this situation. Continue Tamiflu. Symptomatic care (5) ETOH abuse: Code(s): F10.10 - Alcohol abuse, uncomplicated Status: Acute Assessment and Plan: Patient drinks 12-18 beers daily and occasionally hard alcohol. Last drink was Thursday 02/08. Has previously experienced visual hallucinations with cessation but nothing here. CIWA protocol initiated and score at 0-2 He was educated about the benefits of abstaining from alcohol use Continue thiamine and folic acid supplement. Librium and Ativan available as needed (6) Hyponatremia: Code(s): E87.1 - Hypo-osmolality and hyponatremia Status: Acute Assessment and Plan: Sodium 126 on admission. Suspect related to fluid overload. Sodium better with diuresis. Monitor (7) Anemia: Qualifiers: Anemia type: unspecified type Qualified Code(s): D64.9 - Anemia, unspecified Code(s): D64.9 - Anemia, unspecified Status: Acute Assessment and Plan: Hemoglobin 12.2 and was previously 15.4 on 01/27/22. WBC lo
[2023-02-17 16:00] VITALS: BP 121/49; PULSE 86; RESP 16; TEMP 37; O2SAT 97
[2023-02-18] VITALS: BP 129/64; PULSE 83; RESP 20; TEMP 37.1; O2SAT 96
[2023-02-18] MEDS: FOLIC ACID 1 MG TABLET PO (09:11)
[2023-02-18] MEDS: lisinopriL 20 MG TABLET PO (09:12)
[2023-02-18] MEDS: AMOXICILLIN/CLAVULANATE K 875-125 MG TAB 1 TABLET PO (09:12)
[2023-02-18] MEDS: THIAMINE HCL 100 MG TABLET PO (09:12)
[2023-02-18] MEDS: metOLazone 2.5 MG TABLET PO (09:13)
[2023-02-18] MEDS: FERROUS SULFATE 325 MG TABLET DR PO (09:13)
[2023-02-18] MEDS: allopurinoL 100 MG TABLET PO (09:13)
[2023-02-18] MEDS: amLODIPine BESYLATE 5 MG TABLET 10 MG PO (09:14)
[2023-02-18] MEDS: ENOXAPARIN 40 MG/0.4 ML SYRINGE SUB-Q (09:15)
[2023-02-18] MEDS: PANTOPRAZOLE SODIUM IV 40 MG VIAL IV PUSH (09:16)
[2023-02-18] MEDS: FUROSEMIDE INJ 40 MG/4 ML VIAL IV PUSH (09:16)
--- NOTE | 2023-02-18 09:27 | PM.PNCARD ---
Progress Note: A&P Assessment and Plan (1) Acute diastolic CHF (congestive heart failure): Code(s): I50.31 - Acute diastolic (congestive) heart failure Status: Acute Assessment and Plan: Patient with CHF with preserved ejection fraction with significant volume overload. -continue IV diuresis but will reduce his diuretics down to furosemide 40 mg IV daily and I agree with metolazone also at least for now. Probably no metolazone upon discharge.. KCL 40 mEq p.o. x1 today -optimal blood pressure control. Currently on amlodipine and lisinopril. -may add SGLT 2 inhibitor at the time of discharge for CHFpEF. -patient was advised to be compliant with antihypertensives. Low-salt diet counseling was done. Okay for discharge from cardiac perspective (2) Influenza A: Code(s): J10.1 - Influenza due to other identified influenza virus with other respiratory manifestations Status: Acute Assessment and Plan: Management as per primary team. Currently on oseltamivir. (3) ETOH abuse: Code(s): F10.10 - Alcohol abuse, uncomplicated Status: Acute Assessment and Plan: Patient counseled, advised to cut down on alcohol. He verbalized understanding. Subjective Date/time seen: 02/18/23 09:27 Interval history: 62-year-old admitted with shortness of breath, CHF, influenza a Date of service 02/15/2023: Swelling is better with still problematic and significant bilateral lower extremities. No chest pain. No shortness of breath Date of service 02/17/2023: Legs are still swollen but better. No chest pain, shortness of breath Date of service 02/18/2023: Swelling continues to improve. No chest pain, shortness of breath Review of Systems Constitutional: Constitutional: Reports weakness Eyes: Eyes: Reports no additional eye complaints ENT: Reports system reviewed and no additional complaints, except as documented Cardiovascular: Cardiovascular: Reports pedal edema, Reports leg edema and Reports dyspnea on exertion Respiratory: Respiratory: Reports dyspnea on exertion Gastrointestinal: Gastrointestinal: Reports no additional gastrointestinal complaints Musculoskeletal: Musculoskeletal: Reports no additional musculoskeletal complaints Integumentary/Breasts: Skin/Breast: Reports system reviewed and no additional complaints, except as docu Neurologic: Reports system reviewed and no additional complaints, except as documented and Reports weakness Endocrine: Endocrine: Reports no additional endocrine complaints Hematologic/Lymphatic: Hematologic/Lymphatic: Reports no additional hematologic/lymphatic complaints Allergic/Immunologic: Allergic/Immunologic: Reports no additional allergic/immunologic complaints Exam Const: General: comfortable Other: Morbidly obese white male wearing face mask oxygen watching television reporting no symptoms currently HENMT: Mouth: Yes moist mucous membranes Eyes: Sclera: sclerae normal Neck: Neck: supple Other: Normal carotid upstrokes bilaterally. Very difficult to assess venous distention given his body habitus Resp: Other: A prolonged expiratory phase with coarse expiratory rhonchi in both lung cuevas Cardio: Rhythm: regular rhythm Other: PMI is not palpable, no audible gallop or murmur GI: Auscultation: normal bowel sounds Skin: General skin exam: normal color Neuro: Speech: normal speech Other: Alert and oriented x3 Extrem: Other: 1 + bilateral lower extremity edema Psych: Mental Status: mental status grossly normal Objective Data Vital Signs Vital Signs: Vital Signs - 24 hr 02/17/23 16:00 02/17/23 19:42 02/18/23 00:00 Temperature 37.0 C 37.1 C Pulse Rate 86 83 Respiratory Rate 16 20 Blood Pressure 121/49 L 129/64 Pulse Oximetry 97 96 Oxygen Delivery Room Air Intake/Output Intake/Output: Intake & Output 02/15/23 02/16/23 02/17/23 02/18/23 23:59 23:5
[2023-02-18] MEDS: POTASSIUM CHLORIDE 20 MEQ ER TABLET 40 MEQ PO (10:40)
--- NOTE | 2023-02-18 10:45 | PCNWS ---
Weekly nutritional screen. Patient is tolerating current diet with adequate intake. No weight loss reported. No nutritional needs at this time.
--- NOTE | 2023-02-22 15:57 | PM.DS ---
DS: Admitting Diagnosis Discharge Date 02/18/23 Admitting Diagnosis sob DS: Discharge Diagnosis Discharge Diagnosis (1) Acute respiratory distress: Code(s): R06.03 - Acute respiratory distress Status: Acute Assessment and Plan: Patient presents to the emergency room with complaints of shortness of breath. ER noted that the patient was in respiratory distress upon arrival. Chest x-ray shows cardiomegaly with pulmonary edema. CTA of the chest shows extensive left lung consolidation with more patchy mild airspace disease in the remainder the lungs, small to moderate right pleural effusion with atelectasis in the right lower lobe. Minimal left pleural effusion. No PE. ABG 7.38/43/70 on BiPAP. Most likely multifactorial from influenza A, bacterial pneumonia and CHF. Patient required BiPAP and was weaned to nasal cannula and now to room air. Continue antibiotics and antiviral treatments Still with congestion and significant pedal edema: continue diuretics. Explained that he will have pedal edema at discharge but that it should improve with time and chronic diuretics (2) CHF (congestive heart failure): Code(s): I50.9 - Heart failure, unspecified Status: Acute Assessment and Plan: Imaging as mentioned above. BNP 2110. No troponins drawn. He has been started on IV Lasix. Urine output inaccurate but he is voiding well. He is down about 10kg Echo shows LV hypertrophy with preserved systolic function and grade 2 diastolic dysfunction. Patient with acute diastolic CHF. Clinically improved. Renal function, electrolytes stable. Continue Lasix IV. Add metolazone 02/17: Still significant edema, 1 more day of IV diuresis, anticipate discharge home tomorrow on oral diuretics (3) Pneumonia: Code(s): J18.9 - Pneumonia, unspecified organism Status: Acute Assessment and Plan: CT the chest as mentioned above. He has influenza so consider post-viral bacterial pneumonia. Blood cultures NGTD Sputum culture negative He was started on Rocephin, azithromycin and vancomycin MRSA nasal swab negative so Vancomycin stopped He completed azithromycin. Rocephin changed to Augmentin. Continue to complete a course (4) Influenza A: Code(s): J10.1 - Influenza due to other identified influenza virus with other respiratory manifestations Status: Acute Assessment and Plan: Patient's onset of symptoms were 3 days prior to admission. Although he is outside the 48 hour window, patient was severely ill on presentation. Tamiflu is warranted in this situation. Continue Tamiflu. Symptomatic care (5) ETOH abuse: Code(s): F10.10 - Alcohol abuse, uncomplicated Status: Acute Assessment and Plan: Patient drinks 12-18 beers daily and occasionally hard alcohol. Last drink was Thursday 02/08. Has previously experienced visual hallucinations with cessation but nothing here. CIWA protocol initiated and score at 0-2 He was educated about the benefits of abstaining from alcohol use Continue thiamine and folic acid supplement. Librium and Ativan available as needed (6) Hyponatremia: Code(s): E87.1 - Hypo-osmolality and hyponatremia Status: Acute Assessment and Plan: Sodium 126 on admission. Suspect related to fluid overload. Sodium better with diuresis. Monitor (7) Anemia: Qualifiers: Anemia type: unspecified type Qualified Code(s): D64.9 - Anemia, unspecified Code(s): D64.9 - Anemia, unspecified Status: Acute Assessment and Plan: Hemoglobin 12.2 and was previously 15.4 on 01/27/22. WBC low today at 3300 and Plt count low at 104K. Could be chronic from underlying liver disease and/or acute from viral illness and/or from alcohol toxicity B12 and folate levels okay. He does have iron deficiency (ferritin elevated as acute phase reactant) Hgb stable. Stool guaiac ordered Continue iron and PPI. Follow
== END 2023-02-18 12:55 | disposition home or self-care (01) | DRG 193 ==
LOC: ANHED 11:33 → ANHIMU 14:50 → ANH2MED 02-13 20:47
PROVIDERS: Emergency Medicine; Internal Medicine; Student in an Organized Health Care Education/Training Program; Admitting Provider Internal Medicine; Emergency Provider Emergency Medicine; PCP Family Medicine; Visit Provider Student in an Organized Health Care Education/Training Program
DX: J10.1 Influenza due to other identified influenza virus with other respiratory manifestations (principal); I50.31 Acute diastolic (congestive) heart failure; E87.1 Hypo-osmolality and hyponatremia; I11.0 Hypertensive heart disease with heart failure; D50.9 Iron deficiency anemia, unspecified; E66.01 Morbid (severe) obesity due to excess calories; F10.10 Alcohol abuse, uncomplicated; I44.7 Left bundle-branch block, unspecified; J18.9 Pneumonia, unspecified organism; M10.9 Gout, unspecified; Z90.49 Acquired absence of other specified parts of digestive tract; Z20.822 Contact with and (suspected) exposure to COVID-19; Z28.21 Immunization not carried out because of patient refusal; Z68.38 Body mass index [BMI] 38.0-38.9, adult
CPT/HCPCS: 36415; 36600; 71045; 71275; 80048; 80053; 80061; 80069; 82375; 82570; 82607; 82728; 82746; 82805; 82948; 83050; 83540; 83550; 83605; 83735; 83880; 83930; 83935; 84100; 84156; 84300; 84425; 84443; 85025; 85027; 85055; 85380; 85652; 86140; 87040; 87070; 87205; 87449; 87637; 87641; 87899; 93005; 94002; 94640; 94660; 96374; 99291; A9270; C8929; C9113; J0456; J0696; J1650; J1940; J3370; J3411; J3475; Q9957; Q9967

== ENCOUNTER 2023-06-01 18:29 | Inpatient (IN) | payer OTHER, SELFPAY ==
[2023-06-01] VITALS (22 sets, daily range): BP systolic 120–195; BP diastolic 66–99; PULSE 96–133; RESP 14–38; TEMP 37.4–39.4; O2SAT 34–100; BMI 39.2
--- NOTE | ~2023-06-01 | XR_ITS ---
EXAMINATION: XR chest 1V portable INDICATION: Shortness of breath and fever TECHNIQUE: Portable AP chest at 1920 hours COMPARISON: 02/11/2023 FINDINGS: Cardiomegaly is noted. There is a mild diffuse interstitial pattern. There are small pleura l effusions. No pneumothorax is identified. IMPRESSION: 1. Cardiomegaly with mild pulmonary edema. 2. Small pleural effusions. Reviewed, dictated and finalized at location F.
--- NOTE | ~2023-06-01 | XR_ITS ---
EXAMINATION: XR chest 1V portable INDICATION: Increasing shortness of breath TECHNIQUE: Portable AP chest at 0212 hours COMPARISON: 06/01/2023 FINDINGS: Cardiomegaly is noted. There is a diffuse interstitial pattern with interval worsening. The re are small stable pleural effusions. No pneumothorax is identified. IMPRESSION: 1. Cardiomegaly with increasing pulmonary edema. 2. Small pleural effusions. Reviewed, dictated and finalized at location F.
--- NOTE | ~2023-06-01 | US_ITS ---
US venous doppler [facility] DATE: 06/06/2023 13:11 INDICATION: Swelling of the lower extremities TECHNIQUE: Real-time and color flow imaging and Doppler analysis of the veins of both lower extremiti es COMPARISON: None FINDINGS: The greater saphenous veins are patent. There is spontaneous and phasic flow and normal aug mentation and color flow signal and normal compression of the veins of both lower extremities. IMPRESSION: No evidence of deep venous thrombosis of the lower extremities Reviewed, dictated and finalized at Location A. Reviewed, dictated and finalized at location A.
--- NOTE | ~2023-06-01 | US_ITS ---
EXAMINATION: US right upper quadrant DATE: 06/02/2023 19:33 INDICATION: fatty liver TECHNIQUE: Multiple grayscale and Doppler ultrasound images of the right upper quadrant were obtained . COMPARISON: 11/26/2017. FINDINGS: The visualized portions of the pancreas are normal. The liver is enlarged with increased ec hogenicity and uniform echotexture. Minimal liver surface nodularity. Normal hepatopetal flow in the main portal vein. The gallbladder is normal with no abnormal wall thickening, pericholecystic fluid o r stones. The common bile duct measures 5 mm. There was no sonographic Garcia sign. IMPRESSION: Nodular liver surface and can be seen with cirrhosis. Echogenic liver, most commonly due to steatosis but also can be seen with hepatitis and fibrosis. Reviewed, dictated and finalized at location K. IMPRESSION: Nodular liver surface and can be seen with cirrhosis. Echogenic liver, most commonly due to steatosis but also can be seen with hepat itis and fibrosis.
--- NOTE | 2023-06-01 18:43 | ECG_ITS ---
Measurements Intervals [place] Rate: 129 P: 46 VT: 137 QRS: 10 QRSD: 132 T: 74 QT: 305 QTc: 448 Interpretive Statements SINUS TACHYCARDIA LEFT BUNDLE BRANCH BLOCK BASELINE ARTIFACT- I, II, III, AVR, AVL, AVF, V1-V6 ABNORMAL ECG COMPARED TO ECG 02/11/2023 14:58:25 SINUS TACHYCARDIA NOW PRESENT Electronically Signed On 06-01-2023 19:16:55 CDT by Timmy Arnett D.O.
[2023-06-01 19:03] LABS: Alveolar/Arterial O2 Gradient 459.6 mmHg; Base Excess ABG -3.6 mEq/l (+/-2.0); Fractional Inspired Oxygen 80 %; HCO3 ABG 23.2 mEq/l (22.0-26.0); Oxygen Content ABG 18.2 %vol (16.0-22.0); Oxygen Saturation ABG 88.3 % (95.0-100.0); PCO2 ABG 48.3 mmHg (35.0-45.0); PO2 ABG 60.1 mmHg (80.0-100.0); PO2 FiO2 Ratio Arterial Blood 0.75 %; Total Hemoglobin 15.3 g/dL (12.0-18.0); pH ABG 7.299 (7.350-7.450)
[2023-06-01 19:05] LABS: Device NON-REBREATHER MASK; Modified Allen's Test Pass; Oxyhemoglobin 84.7 % THb (90.0-100.0); Site Drawn RIGHT RADIAL
[2023-06-01] MEDS: IPRATROPIUM 0.5 MG/ALBUTEROL SULFATE 2.5 MG AMPUL.NEB 3 ML 6 ML (19:07)
[2023-06-01 19:17] LABS: Hematocrit 43.3 % (42.0-52.0); Hemoglobin 14.4 g/dL (14.0-18.0); Immature Platelet Fraction Pct 2.5 % (0.9-11.2); Mean Corpuscular HGB Conc 33.3 g/dl (32-36); Mean Corpuscular Hemoglobin 32.2 pg (26-34); Mean Corpuscular Volume 96.9 fl (80-100); Mean Platelet Volume 9.4 fl (7.4-10.4); Platelet Count Result 95 k/mm3 (150-375); Red Blood Count 4.47 M/mm3 (4.6-6.20); Red Cell Distribution Width 12.7 % (11.5-14.5); White Blood Count 7.8 K/mm3 (4.5-10.0)
[2023-06-01] MEDS: methylPREDNISolone SOD SUCC 125 MG VIAL IV PUSH (19:20)
[2023-06-01 19:33] LABS: INR 1.4; Prothrombin Time 17.7 Seconds (11.1-14.7)
[2023-06-01 19:34] LABS: Partial Thromboplastin Time 33.9 Seconds (22.3-36.8)
[2023-06-01 19:43] LABS: Alanine Aminotransferase 23 U/L (6-50); Albumin Level 4.4 g/dL (3.5-5.1); Alkaline Phosphatase 80 U/L (38-126); Anion Gap 13 mmol/L (4-12); Aspartate Amino Transferase 53 U/L (17-59); Band Neutrophils Percent 11 % (0-6); Basophils Absolute Manual 0.07 K/mm3 (0.0-0.1); Basophils Percent Manual 1 % (0-1); Bilirubin,Total 2.4 mg/dL (0.2-1.3); Blood Urea Nitrogen 10 mg/dL (9-20); Calcium 9.1 mg/dL (8.4-10.2); Carbon Dioxide 21 mmol/L (22-30); Chloride 98 mmol/L (98-107); Estimated CRCL calculation 117 ml/min; Estimated Glomerular Filt Rate > 60; Glucose 165 mg/dL (65-110); Lactic Acid Reflex 3.7 mmol/L (0.7-2.0); Lymphocytes Absolute Manual 0.39 K/mm3 (1.1-4.5); Monocytes Absolute Manual 0.39 K/mm3 (0.1-0.90); Monocytes Percent Manual 5 % (3-9); Neutrophils Absolute Manual 6.94 K/mm3 (1.3-6.7); Neutrophils Percent Manual 78 % (46-73); Platelet Estimate Decreased (Adequate); Potassium 3.6 mmol/L (3.4-5.0); Sodium 132 mmol/L (137-145); Total Cells Counted 100
[2023-06-01 19:44] LABS: Schistocytes None Seen
[2023-06-01 19:54] LABS: NT Pro B Type Natriuretic Pept 4640 pg/mL (19.9-100)
[2023-06-01 20:02] LABS: Influenza A QL RT-PCR Negative (Negative); Influenza B QL RT-PCR Negative (Negative); RSV RNA, RT-PCR Negative (Negative); SARS-CoV-2 RNA PCR Negative (Negative)
--- NOTE | 2023-06-01 20:02 | ED.GENADULT ---
HPI - General Adult General Chief complaint: Shortness of Breath/Dyspnea Stated complaint: dyspnea Time Seen by Provider: 06/01/23 18:32 History of Present Illness HPI narrative: 62 old male presenting to the emergency department for evaluation worsening shortness of breath. Patient states yesterday he was feeling poorly but was not having severe shortness of breath. Patient states that the shortness of breath worsened today. Patient denies any chest pressure chest tightness. Upon arrival to the emergency department patient was having increased work of breathing, significant wheeze and patient was febrile Patient does have history of CHF and reports that his weight is down currently. Patient does have history of alcohol abuse but last time he was admitted he did not have any issues of withdrawal per family. Related Data Home Medications Medication Instructions Recorded Confirmed lisinopril 20 mg tablet 20 mg PO QPM 02/11/23 06/01/23 furosemide 20 mg tablet 20 mg PO QAM 02/25/23 06/01/23 allopurinol 100 mg tablet 100 mg PO DAILY 06/01/23 06/01/23 amlodipine 10 mg tablet 10 mg PO DAILY 06/01/23 06/01/23 ibuprofen 800 mg tablet 800 mg PO HS PRN Sleep 06/01/23 06/01/23 Allergies Allergy/AdvReac Type Severity Reaction Status Date / Time No Known Allergies Allergy Mild Verified 02/25/23 14:08 Review of Systems Review of Systems: All systems reviewed & are unremarkable except as noted in HPI and below PMFSH Past Medical History Medical History (Updated 06/02/23 @ 15:12 by Stoney Del Castillo MD) Chronic gout without tophus Elevated PSA Erectile dysfunction Essential (primary) hypertension ETOH abuse Fatty liver Grade II diastolic dysfunction Echocardiogram 02/2023: Technically difficult study due to obesity. LVH with normal EF of 60 65%. Grade 2 diastolic dysfunction. Mild left atrial enlargement, right atrial chamber not well visualized IFG (impaired fasting glucose) Obesity (BMI 30-39.9) Surgical History Surgical History (Updated 06/01/23 @ 21:49 by Liliane Oquendo DO) Blow-out fracture of orbital floor With ORIF History of appendectomy History of arthroscopic knee surgery bilateral Family History Family History Father Hypertension Malignant neoplasm of prostate Mother Hypertension Sibling Family history of diabetes mellitus in first degree relative Patient's sister is in good health Patient's brother is in good health Social History Social History (Updated 06/01/23 @ 21:37 by Liliane Oquendo DO) Social History: Currently lives at home mostly alone. Currently from , she will still occasionally stay with him but lives 80 miles away. He Elects his daughter, Dena Raines as his surrogate decision maker. May also contact his current spouse, Savanah Hart. Son, Wilber Raines may also receive information. Code Status: Full Code. (however, he would not want a tracheostomy a or long-term feeding tube) Smoking status: Never smoker Second hand tobacco smoke exposure: No Alcohol intake: current Drinks per week: 84 Alcohol use details: beer Substance use: never Substance use type: does not use Last use: pt stated last drink was Wednesday- pt drinks @ 60 beers and sometimes tequila Do You Feel Safe in your Home?: Yes Lack of Transportation: No Lack of Food: Never True Current Housing: I Have Housing Concerned About Future Housing: No Difficulty Paying Gas/Electric Bills: No Difficulty Paying for Meds: No Currently Unemployed: No Education: Decline to Answer Difficulty w/ Childcare or Family Care: No Living arrangements: alone Occupation/Education: retired Additional occupation/education comments: Retired local company truck driver Gender identity (if verbalized by the patient): Male Spiritual care concerns: No Exam Narrative: APPEARANCE: ill appearing with increased work of br
--- NOTE | 2023-06-01 20:08 | ECG_ITS ---
Measurements Intervals [place] Rate: 123 P: 75 [place]: 145 QRS: 1 QRSD: 129 T: 43 QT: 322 QTc: 461 Interpretive Statements SINUS OR ECTOPIC ATRIAL TACHYCARDIA LEFT BUNDLE BRANCH BLOCK BASELINE ARTIFACT- I, II, III, AVR, AVL, AVF, V1-V6 ABNORMAL ECG COMPARED TO ECG 06/01/2023 18:54:18 NO SIGNIFICANT CHANGES Electronically Signed On 06-02-2023 6:24:49 CDT by Timmy Arnett D.O.
--- NOTE | 2023-06-01 20:14 | ECG_ITS ---
Measurements Intervals [place] Rate: 102 P: 11 [place]: 146 QRS: -3 QRSD: 134 T: 61 QT: 366 QTc: 478 Interpretive Statements SINUS TACHYCARDIA LEFT BUNDLE BRANCH BLOCK BASELINE WANDER- III, V5 ABNORMAL ECG COMPARED TO ECG 06/01/2023 19:16:37 HEART RATE HAS DECREASED Electronically Signed On 06-02-2023 13:48:20 CDT by Timmy Arnett D.O.
[2023-06-01] MEDS: AZITHROMYCIN 500 MG/NS 250 ML 500 MG/250 ML BAG 250 MG IVPB (20:21)
[2023-06-01] MEDS: ACETAMINOPHEN 500 MG TABLET 1000 MG PO (20:22)
[2023-06-01] MEDS: SODIUM CHLORIDE 0.9% IV 1,000 ML 999 ML IV CONT (20:22)
--- NOTE | 2023-06-01 20:31 | PM.IMHP ---
H&P: HPI History of Present Illness Date/Time: 06/01/23 20:31 Chief Complaint: Shortness of breath since last night Narrative: 62-year-old male with past medical history of obesity, alcohol use, essential hypertension, grade 2 diastolic dysfunction and gout who presented to the ER with shortness of breath since last night and was found to be in respiratory distress on arrival. The patient was satting 38% on room air on arrival. Patient's respiratory rate was in the mid [place] and initial ABG on non-rebreather demonstrated pH 7.29 pCO2 48 PO2 of 60 anoxic hemoglobin of 84%. Patient was subsequently placed on a BiPAP 02/10 an oxygen was weaned down to 40%. With starting BiPAP patient's respiratory rate came down 14 her rate came down to 104. Patient was febrile on arrival to 102.9?. Patient's flu, RSV and COVID PCRs were negative. The Patient had similar presentation to the hospital in February at which time he tested positive for influenza a and was treated for suspected bacterial pneumonia complicating influenza and for CHF. Echocardiogram at that time demonstrated EF of 60-65% and grade 2 diastolic dysfunction. The patient stated he had a busy day at the [facility] on Wednesday. On Wednesday he felt more tired than usual. As the day progressed he did develop a cough but it was hard but nonproductive. He denied any recent ill contacts. He reported that in the middle the night he woke up and could not get back to sleep in due to shortness of breath. He had to sit completely upright. After about 4 hours he did take some ibuprofen. After he took the ibuprofen he felt more comfortable was able to sleep for 4 hours. However, when he woke up he was significantly more short of breath. He did not specifically realize a was having any fevers or chills. But when he arrived to the ER his temperature was a 102.9?. He was going to wait until tomorrow to be evaluated but his respiratory distress acutely worsened in the late afternoon any called his daughter who brought him into the ER via private vehicle. The patient tried to insist that he could walk into the hospital unassisted but his daughter demanded that he use a wheelchair. On arrival to the ER patient's oxygen saturations were in the upper 30s. He received albuterol, Solu-Medrol, Rocephin and azithromycin and reports that he feels much better. He is disappointed that he is going to have to stay in the hospital for at least 2 days. His daughter reports he was having trouble to the urinating prior to coming to the hospital. The patient reports that he does not have trouble urinating in usually fills up 3 urinals is a day. He states that he is down 30 lb from his last hospitalization. He denies any abdominal distension, nausea, vomiting or diarrhea. He denies any chest pain. He reports that he has been recommended have a sleep study. He continues to refuse a sleep study because he would never want to wear a BiPAP. The patient's case was discussed with the patient, his daughter and son-in-law. The patient's daughter and son-in-law provided some information with the patient's permission. Patient was a good historian. Review of Systems Review of Systems: 12 systems were reviewed with pertinent positives and negatives per HPI. Except as documented in the HPI, all other systems were reviewed and are negative. [facility] Past Medical History Medical History (Updated 06/01/23 @ 21:40 by Liliane Oquendo DO) Chronic gout without tophus Elevated PSA Erectile dysfunction Essential (primary) hypertension ETOH abuse Fatty liver Grade II diastolic dysfunction Echocardiogram 02/2023: Technically difficult study due to obesity. LVH with normal EF of 60 65%. Grade 2 diastolic dysfunction. Mild left atrial enlargement, right atrial chamber not well visualized IFG (impaired fasting glucose) Obesity (BMI 30-39.9) Surgical History Surgical History (Updated 06/01/23 @ 21:49 by Liliane Oquendo DO)
[2023-06-01 20:56] LABS: Ethanol < 10 mg/dL (<10)
--- NOTE | 2023-06-01 21:37 | ADMGEN ---
This patient, Edwin Raines, was admitted to IMU Room 210-01. Patient/family oriented to hospital policies and general routines including ID bracelet, bed and alarms, visiting hours, pain management, procedures, bathroom and other care routines, personal items, smoking policy, room service/diet, and visiting hours. Information on how to activate the Rapid Response Team has been discussed. Patient/Family are encouraged to report perceived risks to care and to ask questions if they do not understand what they are told or what they should do.
[2023-06-01 22:13] LABS: Reflex Lactic Acid Yes or No Add Lactic
[2023-06-01 22:52] LABS: Lactic Acid 1.4 mmol/L (0.7-2.0)
[2023-06-02] VITALS (29 sets, daily range): BP systolic 114–156; BP diastolic 55–83; PULSE 83–116; RESP 16–31; TEMP 36.3–37.9; O2SAT 94–100
[2023-06-02] MEDS: ALBUTEROL SULFATE NEB 2.5 MG/3 ML INH 5 MG INHALATION ×4 (02:53→20:19)
[2023-06-02] MEDS: IPRATROPIUM BR 0.02% INH SOLN 0.5 MG/2.5 ML VIAL INHALATION ×4 (02:53→20:19)
[2023-06-02 04:40] LABS: Hematocrit 39.9 % (42.0-52.0); Hemoglobin 13.3 g/dL (14.0-18.0); Mean Corpuscular HGB Conc 33.3 g/dl (32-36); Mean Corpuscular Hemoglobin 31.7 pg (26-34); Mean Corpuscular Volume 95.2 fl (80-100); Mean Platelet Volume 9.7 fl (7.4-10.4); Platelet Count Result 83 k/mm3 (150-375); Red Blood Count 4.19 M/mm3 (4.6-6.20); Red Cell Distribution Width 12.6 % (11.5-14.5); White Blood Count 3.2 K/mm3 (4.5-10.0)
[2023-06-02 04:51] LABS: Anion Gap 8 mmol/L (4-12); Blood Urea Nitrogen 13 mg/dL (9-20); Calcium 8.8 mg/dL (8.4-10.2); Carbon Dioxide 23 mmol/L (22-30); Chloride 100 mmol/L (98-107); Estimated CRCL calculation 140 ml/min; Estimated Glomerular Filt Rate > 60; Glucose 173 mg/dL (65-110); Potassium 3.6 mmol/L (3.4-5.0); Sodium 131 mmol/L (137-145)
[2023-06-02 05:05] LABS: Band Neutrophils Percent 12 % (0-6); Lymphocytes Absolute Manual 0.22 K/mm3 (1.1-4.5); Lymphocytes Percent Manual 7 % (18-44); Monocytes Absolute Manual 0.09 K/mm3 (0.1-0.90); Monocytes Percent Manual 3 % (3-9); Neutrophils Absolute Manual 2.88 K/mm3 (1.3-6.7); Neutrophils Percent Manual 78 % (46-73); Platelet Estimate Decreased (Adequate); Total Cells Counted 100
[2023-06-02 05:06] LABS: Anisocytosis 1+; Hypochromasia 1+; Schistocytes None Seen
--- NOTE | 2023-06-02 12:08 | PM.IMPN ---
Progress Note: A&P Assessment and Plan (1) Acute respiratory failure with hypoxia and hypercapnia: Code(s): J96.01 - Acute respiratory failure with hypoxia; J96.02 - Acute respiratory failure with hypercapnia Status: Acute Assessment and Plan: Patient presented with acute hypoxic respiratory failure with mild component of hypercapnic respiratory failure Associated with sepsis due to pneumonia. ABG 7./66 Active wheezing noted on arrival but this has resolved. Hx of smoking 2 cigars a month and no dx of COPD/asthma Scheduled nebulizer treatments started. Patient did receive 1 dose of IV Solu-Medrol. BiPAP started in ER and he tolerated BiPAP overnight. BiPAP stopped this morning. Stable on 2 L. Continue to use BiPAP as needed today and scheduled at evening hours and with naps. Repeat ABG in the morning. Continue bronchodilators (2) Sepsis: Qualifiers: Acute respiratory failure type: with hypoxia Sepsis acute organ dysfunction status: with acute organ dysfunction Sepsis type: sepsis due to unspecified organism Severe sepsis acute organ dysfunction type: acute respiratory failure Severe sepsis shock status: without septic shock Qualified Code(s): A41.9 - Sepsis, unspecified organism; R65.20 - Severe sepsis without septic shock; J96.01 - Acute respiratory failure with hypoxia Code(s): A41.9 - Sepsis, unspecified organism Status: Acute Assessment and Plan: Sepsis criteria met with fever, relative leukocytosis (patient normally leukopenic), bandemia of 11%, tachycardia and tachypnea with sofa score of 4. Patient received 1 L fluid bolus but further IV fluid held due to concern for possible CHF. Clinically however patient more likely has sepsis from pneumonia than CHF. BCx pending. CXR showing cardiomegaly with mild pulmonary edema and small pleural effusion Influenza, RSV and COVID PCR were negative. Empiric antibiotic therapy with Rocephin and azithromycin started. Continue with azithromycin and Rocephin. Will adjust antibiotic regimen based on clinical response. (3) Pneumonia: Qualifiers: Laterality: bilateral Lung location: unspecified part of lung Pneumonia type: due to unspecified organism Qualified Code(s): J18.9 - Pneumonia, unspecified organism Code(s): J18.9 - Pneumonia, unspecified organism Status: Acute Assessment and Plan: Check urine antigens. As above (4) Grade II diastolic dysfunction: Code(s): I51.89 - Other ill-defined heart diseases Status: Acute Assessment and Plan: Patient received 1 L fluid bolus but further fluid bolus was withheld in the ER due to the patient's history of grade 2 diastolic dysfunction and x-ray findings suspicious for cardiomegaly and CHF Patient does not appear to be clinically fluid overloaded at this time will monitor fluid status closely and consider cautious administration of IV fluids as case dictates. (5) ETOH abuse: Code(s): F10.10 - Alcohol abuse, uncomplicated Status: Acute Assessment and Plan: Patient does have a history of heavy alcohol use. Alcohol level is <10. Will monitor for signs of alcohol withdrawal with [facility] protocol Start Thiamine and Folate. Librium available as needed for now but consider scheduling if needed. (6) Essential (primary) hypertension: Code(s): I10 - Essential (primary) hypertension Status: Acute Assessment and Plan: Blood pressure elevated on admission better controlled now. Home medications were reviewed. Will hold antihypertensive medications at this time an abdomen back slowly as his blood pressure increases. (7) Fatty liver: Code(s): K76.0 - Fatty (change of) liver, not elsewhere classified Status: Acute Assessment and Plan: Patient has fatty liver as noted on his past medical history. No imaging noted of his liver. Patient with chronic thrombocytopenia since 2021
[2023-06-02 14:14] LABS: Bacteria Urine None Seen /hpf; Non Pathogenic Casts 0-2; RBC Urine 0-2 /hpf (0-2); Squamous Epithelial Cell Urine None Seen /hpf (Few); WBC Urine 0-5 /hpf (0-3)
[2023-06-02 14:26] LABS: Appearance Urine Clear (Clear); Color Urine Dark Yellow (Yellow); pH Urine 5.5 (5.0-9.0)
[2023-06-02 14:27] LABS: Bilirubin Urine 1+ (Negative); Blood Urine Negative (Negative); Glucose Urine UA 3+ mg/dL (Negative); Ketones Urine Trace mg/dL (Negative); Leukocyte Esterase Ur Negative LEU/UL (Negative); Nitrate Urine Negative (Negative); Protein Urine 1+ mg/dL (Negative); Specific Grav Ur 1.015 (1.001-1.035); Urobilinogen Urine 0.2 mg/dL (<2.0)
[2023-06-02 14:28] LABS: Add Urine Microscopic? YES
[2023-06-02] MEDS: THIAMINE HCL 200 MG/2 ML VIAL 100 MG IV PUSH (15:08)
[2023-06-02] MEDS: FOLIC ACID 1 MG TABLET PO (15:09)
[2023-06-02] MEDS: allopurinoL 100 MG TABLET PO (15:09)
[2023-06-02] MEDS: AZITHROMYCIN 500 MG/NS 250 ML 500 MG/250 ML BAG 250 MG IVPB (20:51)
[2023-06-03] VITALS (34 sets, daily range): BP systolic 125–158; BP diastolic 60–84; PULSE 77–140; RESP 18–40; TEMP 36.9–39.4; O2SAT 93–100
[2023-06-03] MEDS: MELATONIN 5 MG TABLET PO (01:16)
[2023-06-03] MEDS: ACETAMINOPHEN 325 MG TABLET 650 MG PO (01:16)
[2023-06-03] MEDS: IPRATROPIUM BR 0.02% INH SOLN 0.5 MG/2.5 ML VIAL INHALATION ×4 (01:47→20:26)
[2023-06-03] MEDS: ALBUTEROL SULFATE NEB 2.5 MG/3 ML INH 5 MG INHALATION ×4 (01:47→20:27)
--- NOTE | 2023-06-03 02:04 | ECG_ITS ---
Measurements Intervals [facility] Rate: 121 P: NC: 0 QRS: -9 QRSD: 140 T: 53 QT: 317 QTc: 451 Interpretive Statements SINUS TACHYCARDIA LEFT BUNDLE BRANCH BLOCK BASELINE ARTIFACT- I, II, III, AVR, AVL AVF ABNORMAL ECG COMPARED TO ECG 06/01/2023 20:14:36 HEART RATE HAS INCREASED Electronically Signed On 06-03-2023 6:32:41 CDT by Timmy Arnett D.O.
[2023-06-03 02:29] LABS: Alveolar/Arterial O2 Gradient 113.7 mmHg; Base Excess ABG -0.2 mEq/l (+/-2.0); Fractional Inspired Oxygen 40 %; HCO3 ABG 24.4 mEq/l (22.0-26.0); Oxygen Saturation ABG 98.5 % (95.0-100.0); Oxyhemoglobin 97.1 % THb (90.0-100.0); PCO2 ABG 39.6 mmHg (35.0-45.0); PO2 FiO2 Ratio Arterial Blood 3.15 %; Total Hemoglobin 14.5 g/dL (12.0-18.0); pH ABG 7.407 (7.350-7.450)
[2023-06-03 02:30] LABS: Device BIPAP; Modified Allen's Test Pass; Site Drawn RIGHT RADIAL
[2023-06-03 02:31] LABS: Expiratory Pressure 6 cmH2O; Inspiratory Pressure 10 cmH2O
[2023-06-03] MEDS: LORazepam INJ (*CRX) 2 MG/ML VIAL 1 MG IV PUSH (02:56)
--- NOTE | 2023-06-03 04:00 | P.PNCROSS_ITS ---
Event Note Event Note Event Note: Nursing staff called as the patient's heart rate had been increasing and was ar ound 120 in the patient's respiratory rate was increasing back up into the mid 30s and 40s. I went to evaluate the patient after stat chest x-ray was performed an EKG was performed. EKG. Consistent with sinus tachycardia and a underlying atrial flutter not excluded due to difficulty with baseline artifact. ABG demonstrated respiratory alkalosis with normal PO2. Chest x-ray appeared slightly worsened prior. On evaluation patient was slightly diaphoretic and tremulous. He is was anxious in setting of on the side of the bed and moving about. He complains that he had not slept since admission. The patient does have a history of alcohol use and has not drink alcohol since last Wednesday. CIWA score at the time my evaluation was 13 or 14. Patient was requesting something for sleep. I did give the patient 1 mg of Ativan. Will will evaluate patient's status afterwards. Patient was otherwise oriented. His temperature was elevated to 100.5. Blood cultures were still negative. Patient remains on antibiotics for community-acquired pneumonia with Rocephin and azithromycin. Nursing staff had reported patient increased oxygen requirement from 2 L to 6 L prior to going back on BiPAP. After ABG returned with PO2 126 pH of 7.4 and pCO2 of 39 patient's BiPAP settings were changed to 10 or 5 and PO2 was decreased 30% 30 minute spent in critical care activities. Due to a high probability of clinically significant, life threatening deterioration, the patient required my highest level of preparedness to intervene emergently and I personally spent this critical care time directly and personally managing the patient. This critical care time included obtaining a history; examining the patient; pulse oximetry; ordering and review of studies; arranging urgent treatment with development of a management plan; evaluation of patient's response to treatment; frequent reassessment; and discussions with other providers. It was exclusive of separately billable procedures and treating other patients and teaching time. Please see Assessment and Plan section and the rest of the note for further information on patient assessment and treatment.
[2023-06-03] MEDS: WATER FOR IRRIGATION, STERILE 1,000 ML BOTTLE 1000 ML (04:27)
[2023-06-03 05:00] LABS: Hematocrit 40.8 % (42.0-52.0); Hemoglobin 13.3 g/dL (14.0-18.0); Immature Platelet Fraction Pct 3.4 % (0.9-11.2); Mean Corpuscular HGB Conc 32.6 g/dl (32-36); Mean Corpuscular Hemoglobin 31.7 pg (26-34); Mean Corpuscular Volume 97.4 fl (80-100); Mean Platelet Volume 9.9 fl (7.4-10.4); Platelet Count Result 106 k/mm3 (150-375); Red Blood Count 4.19 M/mm3 (4.6-6.20); Red Cell Distribution Width 12.5 % (11.5-14.5); White Blood Count 6.4 K/mm3 (4.5-10.0)
[2023-06-03 05:16] LABS: Albumin Level 3.8 g/dL (3.5-5.1); Anion Gap 4 mmol/L (4-12); Blood Urea Nitrogen 23 mg/dL (9-20); Carbon Dioxide 29 mmol/L (22-30); Chloride 98 mmol/L (98-107); Estimated CRCL calculation 88 ml/min; Estimated Glomerular Filt Rate > 60; Glucose 126 mg/dL (65-110); Magnesium 2.1 mg/dL (1.6-2.3); Phosphorus 3.3 mg/dL (2.5-4.5); Potassium 3.7 mmol/L (3.4-5.0); Sodium 131 mmol/L (137-145)
[2023-06-03] MEDS: IPRATROPIUM BR 0.02% INH SOLN 0.5 MG/2.5 ML VIAL 1 MG INHALATION (05:30)
[2023-06-03 05:31] LABS: Band Neutrophils Percent 13 % (0-6); Lymphocytes Absolute Manual 0.38 K/mm3 (1.1-4.5); Monocytes Absolute Manual 0.51 K/mm3 (0.1-0.90); Monocytes Percent Manual 8 % (3-9); Neutrophils Percent Manual 73 % (46-73); Total Cells Counted 100
[2023-06-03 05:32] LABS: Anisocytosis 1+; Platelet Estimate Slightly Decreased (Adequate); Schistocytes None Seen
[2023-06-03] MEDS: LEVALBUTEROL NEB 1.25 MG/3 ML 6.25 MG INHALATION (06:08)
[2023-06-03] MEDS: IBUPROFEN IV 400 MG in SODIUM CHLORIDE 0.9% IV 100 ML 208 MG IVPB (06:10)
[2023-06-03] MEDS: SODIUM CHLORIDE 0.9% IV 500 ML 250 ML IV CONT (06:10)
[2023-06-03] MEDS: methylPREDNISolone SOD SUCC 125 MG VIAL 60 MG IV PUSH (06:15)
--- NOTE | 2023-06-03 09:11 | PC.NURSE ---
At multiple points in the evening the fryer operator had to be called in to evaluate the patient. (See provider's cross cover note) The patient initially reported feeling a whole lot better than I did yesterday when assessed after shift change. His initial CIWA was 5. As the night went on the patient's heart rate slowly elevated from low 100s to 120s and 130s. Likewise his respiratory rate increased. Due to this the first call was made to the physician who promptly assessed the patient. The patients CIWA on assessment at this time was 13 and the provider ordered ativan to see if the patient' symptoms improved. The symptoms did initially improve as reported by the patient, and his RR came down into the high 20s with a HR in the 110s. After between 1 and 2 hours time, the patient's symptoms returned and he became increasingly confused, though he was able to answer all orientation questions. This time his HR was in the 130s and RR was near 40. The provider was called and was en route to the room when the decision was made to call a rapid response by the hair boiler operator, who had been called in to assist with the patient. This was because he was uncooperative and his condition was declining. The provider assessed the patient again and entered more orders. (See orders and provider documentation.) The patient was moved to room 203 for closer observation and a sitter was placed as this RN carried out the provider's orders. An extensive report was given to the oncoming day RN.
[2023-06-03] MEDS: THIAMINE HCL 100 MG TABLET PO (10:16)
--- NOTE | 2023-06-03 10:33 | PM.IMPN ---
Progress Note: A&P Assessment and Plan (1) Acute respiratory failure with hypoxia and hypercapnia: Code(s): J96.01 - Acute respiratory failure with hypoxia; J96.02 - Acute respiratory failure with hypercapnia Status: Acute Assessment and Plan: Patient presented with acute hypoxic respiratory failure with mild component of hypercapnic respiratory failure Active wheezing noted on arrival but this has resolved. Hx of smoking 2 cigars a month and no dx of COPD/asthma Associated with sepsis due to pneumonia +/- asthma/COPD. ABG 7.29/48/66. Bronchodilators started. Patient did receive 1 dose of IV Solu-Medrol. BiPAP started in ER and he tolerating it well More symptomatic last night but felt related to fever ABG 7.40/40/126 on bipap Continue to use BiPAP as needed today and scheduled at evening hours and with naps. Continue bronchodilators (2) Sepsis: Qualifiers: Sepsis type: sepsis due to unspecified organism Sepsis acute organ dysfunction status: with acute organ dysfunction Severe sepsis acute organ dysfunction type: acute respiratory failure Acute respiratory failure type: with hypoxia Severe sepsis shock status: without septic shock Qualified Code(s): A41.9 - Sepsis, unspecified organism; R65.20 - Severe sepsis without septic shock; J96.01 - Acute respiratory failure with hypoxia Code(s): A41.9 - Sepsis, unspecified organism Status: Acute Assessment and Plan: Sepsis criteria met with fever, relative leukocytosis (patient normally leukopenic), bandemia of 11%, tachycardia and tachypnea with sofa score of 4. Patient received 1 L fluid bolus but further IV fluid held due to concern for possible CHF. CXR showing cardiomegaly with mild pulmonary edema and small pleural effusion BCx NGTD Influenza, RSV and COVID PCR were negative. Clinically felt pt with sepsis from pneumonia than CHF. Empiric antibiotic therapy with Rocephin and azithromycin started (05/31). Still having fevers and bandemia persists. Repeat CXR showing CMG with increasing pulm edema and small pleural effusions Continue with azithromycin and Rocephin. Repeat influenza. Check MRSA nasal swab. (3) Pneumonia: Code(s): J18.9 - Pneumonia, unspecified organism Status: Acute Assessment and Plan: Urine antigens pending. As above (4) CHF (congestive heart failure): Qualifiers: Heart failure type: diastolic Code(s): I50.9 - Heart failure, unspecified Status: Acute Assessment and Plan: Patient received 1 L fluid bolus but further fluid bolus was withheld in the ER due to the patient's history of diastolic CHF CXR concerning for pulmonary edema. Patient with trace edema noted so consider mild fluid overload since being off his lasix will monitor fluid status closely and consider cautious diuresis once more stable (5) ETOH abuse: Code(s): F10.10 - Alcohol abuse, uncomplicated Status: Acute Assessment and Plan: Patient does have a history of heavy alcohol use. Alcohol level is <10. Thiamine and Folate started. CIWA protocol ordered CIWA elevated but felt related to fever and not for withdrawal per se Will monitor for signs of alcohol withdrawal with CIWA protocol Add low dose Librium. Ativan available prn Educate about the benefits of abstaining from alcohol use (6) Essential (primary) hypertension: Code(s): I10 - Essential (primary) hypertension Status: Acute Assessment and Plan: Blood pressure elevated last night with fever Home medications were reviewed. BP better this morning. Will contineu to hold antihypertensive medications at this time (7) Fatty liver: Code(s): K76.0 - Fatty (change of) liver, not elsewhere classified Status: Acute Assessment and Plan: Patient has fatty liver as noted on his past medical history. RUQ US showing nodular liver surface and echogenicity related to steatosis. Gennaro
[2023-06-03 11:15] LABS: Influenza A QL RT-PCR Negative (Negative); Influenza B QL RT-PCR Negative (Negative)
[2023-06-03 11:54] LABS: MRSA (PCR) NOT DETECTED (NOT DETECTE)
[2023-06-03] MEDS: FOLIC ACID 1 MG TABLET PO (13:39)
[2023-06-03] MEDS: chlordiazePOXIDE (*CRX) 10 MG CAPSULE PO ×2 (13:39→21:32)
[2023-06-03] MEDS: allopurinoL 100 MG TABLET PO (13:39)
--- NOTE | 2023-06-03 14:50 | PC.NURSE ---
On 06/03/23, the student, [ Aleksandr Saucedo], provided care and completed [facility] documentation on this patient. I have reviewed the student's documentation and agree with the findings.
[2023-06-03] MEDS: AZITHROMYCIN 500 MG/NS 250 ML 500 MG/250 ML BAG 250 MG IVPB (20:16)
[2023-06-04] VITALS (27 sets, daily range): BP systolic 131–147; BP diastolic 62–74; PULSE 63–112; RESP 18–26; TEMP 36.6–38.2; O2SAT 92–99
[2023-06-04] MEDS: ALBUTEROL SULFATE NEB 2.5 MG/3 ML INH 5 MG INHALATION ×4 (02:13→20:20)
[2023-06-04] MEDS: IPRATROPIUM BR 0.02% INH SOLN 0.5 MG/2.5 ML VIAL INHALATION ×4 (02:14→20:20)
[2023-06-04 04:38] LABS: Hematocrit 37.6 % (42.0-52.0); Hemoglobin 12.3 g/dL (14.0-18.0); Immature Platelet Fraction Pct 3.4 % (0.9-11.2); Mean Corpuscular HGB Conc 32.7 g/dl (32-36); Mean Corpuscular Hemoglobin 31.2 pg (26-34); Mean Corpuscular Volume 95.4 fl (80-100); Mean Platelet Volume 9.8 fl (7.4-10.4); Platelet Count Result 99 k/mm3 (150-375); Red Blood Count 3.94 M/mm3 (4.6-6.20); Red Cell Distribution Width 12.8 % (11.5-14.5); White Blood Count 3.5 K/mm3 (4.5-10.0)
[2023-06-04 04:52] LABS: Alanine Aminotransferase 25 U/L (6-50); Albumin Level 3.5 g/dL (3.5-5.1); Alkaline Phosphatase 65 U/L (38-126); Anion Gap 3 mmol/L (4-12); Aspartate Amino Transferase 62 U/L (17-59); Bilirubin,Total 1.6 mg/dL (0.2-1.3); Blood Urea Nitrogen 20 mg/dL (9-20); Calcium 8.8 mg/dL (8.4-10.2); Carbon Dioxide 26 mmol/L (22-30); Chloride 102 mmol/L (98-107); Estimated CRCL calculation 162 ml/min; Estimated Glomerular Filt Rate > 60; Glucose 131 mg/dL (65-110); Potassium 3.6 mmol/L (3.4-5.0); Sodium 131 mmol/L (137-145)
[2023-06-04 06:03] LABS: Total Cells Counted 100
[2023-06-04 06:04] LABS: Band Neutrophils Percent 14 % (0-6); Lymphocytes Absolute Manual 0.28 K/mm3 (1.1-4.5); Lymphocytes Percent Manual 8 % (18-44); Metamyelocytes Percent 1 %; Monocytes Absolute Manual 0.45 K/mm3 (0.1-0.90); Monocytes Percent Manual 13 % (3-9); Neutrophils Absolute Manual 2.73 K/mm3 (1.3-6.7); Neutrophils Percent Manual 64 % (46-73); Ovalocytes 1+; Platelet Estimate Decreased (Adequate); Schistocytes None Seen
[2023-06-04] MEDS: chlordiazePOXIDE (*CRX) 10 MG CAPSULE PO ×3 (06:08→21:14)
[2023-06-04] MEDS: THIAMINE HCL 100 MG TABLET PO (09:21)
[2023-06-04] MEDS: allopurinoL 100 MG TABLET PO (14:23)
[2023-06-04] MEDS: FOLIC ACID 1 MG TABLET PO (14:23)
[2023-06-04] MEDS: ACETAMINOPHEN 325 MG TABLET 650 MG PO (14:27)
--- NOTE | 2023-06-04 16:10 | PM.IMPN ---
Progress Note: A&P Assessment and Plan (1) Acute respiratory failure with hypoxia and hypercapnia: Code(s): J96.01 - Acute respiratory failure with hypoxia; J96.02 - Acute respiratory failure with hypercapnia Status: Acute Assessment and Plan: Patient presented with acute hypoxic respiratory failure with mild component of hypercapnic respiratory failure Active wheezing noted on arrival. Hx of smoking 2 cigars a month and no hx of COPD/asthma Associated with sepsis due to pneumonia +/- asthma/COPD. ABG 7.29/48/66. Bronchodilators started. Patient did receive 1 dose of IV Solu-Medrol. BiPAP started in ER and he tolerating it well Follow up ABG 7.40/40/126 on bipap Continue to use BiPAP as needed while awake and scheduled at sleep and with naps. Continue bronchodilators Wean O2 as tolerated (2) Sepsis: Qualifiers: Sepsis type: sepsis due to unspecified organism Sepsis acute organ dysfunction status: with acute organ dysfunction Severe sepsis acute organ dysfunction type: acute respiratory failure Acute respiratory failure type: with hypoxia Severe sepsis shock status: without septic shock Qualified Code(s): A41.9 - Sepsis, unspecified organism; R65.20 - Severe sepsis without septic shock; J96.01 - Acute respiratory failure with hypoxia Code(s): A41.9 - Sepsis, unspecified organism Status: Acute Assessment and Plan: Sepsis criteria met with fever, relative leukocytosis (patient normally leukopenic), bandemia of 11%, tachycardia and tachypnea Patient received 1 L fluid bolus but further IV fluid held due to concern for possible CHF. CXR showing cardiomegaly with mild pulmonary edema and small pleural effusion BCx NGTD Influenza, RSV and COVID PCR were negative. Clinically felt pt with sepsis from pneumonia than CHF. Empiric antibiotic therapy with Rocephin and azithromycin started (05/31). MRSA nasal swab negative. Repeat influenza negative. Still having fevers and bandemia worse. Repeat CXR 06/02 showing CMG with increasing pulm edema and small pleural effusions Continue Rocephin. Change to Doxycycline. (3) Pneumonia: Code(s): J18.9 - Pneumonia, unspecified organism Status: Acute Assessment and Plan: Urine antigens pending. As above (4) CHF (congestive heart failure): Qualifiers: Heart failure type: diastolic Code(s): I50.9 - Heart failure, unspecified Status: Acute Assessment and Plan: Patient received 1 L fluid bolus but further fluid bolus was withheld in the ER due to the patient's history of diastolic CHF CXR concerning for pulmonary edema. Patient with trace edema noted so consider mild fluid overload since being off his lasix BP stable. Add back oral Lasix. (5) ETOH abuse: Code(s): F10.10 - Alcohol abuse, uncomplicated Status: Acute Assessment and Plan: Patient does have a history of heavy alcohol use. Alcohol level is <10. Thiamine and Folate started. CIWA protocol ordered CIWA elevated but felt related to fever and not for withdrawal per se Will monitor for signs of alcohol withdrawal with CIWA protocol Continue dose Librium. Ativan available prn Educated about the benefits of abstaining from alcohol use (6) Essential (primary) hypertension: Code(s): I10 - Essential (primary) hypertension Status: Acute Assessment and Plan: Patient's blood pressure was reviewed on 06/03 Blood pressure remains well controlled. Add Lasix back. Continue to add back home meds as toelrated. (7) Fatty liver: Code(s): K76.0 - Fatty (change of) liver, not elsewhere classified Status: Acute Assessment and Plan: Patient has fatty liver as noted on his past medical history. RUQ US showing nodular liver surface and echogenicity related to steatosis. Patient with chronic thrombocytopenia since 2021 possibly related to alcohol itself and/or from liver disease INR 1.4
[2023-06-04] MEDS: FUROSEMIDE 20 MG TABLET PO (16:56)
[2023-06-04] MEDS: DOXYCYCLINE 100 MG/NS 100 ML 100 MG/100 ML BAG IVPB (16:58)
[2023-06-05] VITALS (24 sets, daily range): BP systolic 118–156; BP diastolic 64–84; PULSE 80–112; RESP 18–22; TEMP 36.6–37.7; O2SAT 90–100
[2023-06-05] MEDS: ALBUTEROL SULFATE NEB 2.5 MG/3 ML INH 5 MG INHALATION ×4 (02:10→20:01)
[2023-06-05] MEDS: IPRATROPIUM BR 0.02% INH SOLN 0.5 MG/2.5 ML VIAL INHALATION ×4 (02:10→20:01)
[2023-06-05 04:07] LABS: Hematocrit 38.4 % (42.0-52.0); Immature Platelet Fraction Pct 2.9 % (0.9-11.2); Mean Corpuscular HGB Conc 33.9 g/dl (32-36); Mean Corpuscular Hemoglobin 31.6 pg (26-34); Mean Corpuscular Volume 93.4 fl (80-100); Mean Platelet Volume 9.2 fl (7.4-10.4); Platelet Count Result 96 k/mm3 (150-375); Red Blood Count 4.11 M/mm3 (4.6-6.20); Red Cell Distribution Width 12.9 % (11.5-14.5)
[2023-06-05 04:19] LABS: Alanine Aminotransferase 38 U/L (6-50); Albumin Level 3.2 g/dL (3.5-5.1); Alkaline Phosphatase 65 U/L (38-126); Anion Gap 1 mmol/L (4-12); Aspartate Amino Transferase 93 U/L (17-59); Bilirubin,Total 1.6 mg/dL (0.2-1.3); Blood Urea Nitrogen 18 mg/dL (9-20); Calcium 8.5 mg/dL (8.4-10.2); Carbon Dioxide 26 mmol/L (22-30); Chloride 101 mmol/L (98-107); Estimated CRCL calculation 120 ml/min; Estimated Glomerular Filt Rate > 60; Glucose 90 mg/dL (65-110); Potassium 3.5 mmol/L (3.4-5.0); Sodium 128 mmol/L (137-145)
[2023-06-05 04:33] LABS: Lymphocytes Absolute Manual 0.66 K/mm3 (1.1-4.5); Monocytes Absolute Manual 0.36 K/mm3 (0.1-0.90); Monocytes Percent Manual 12 % (3-9); Myelocytes Percent 4 %; Neutrophils Percent Manual 62 % (46-73); Total Cells Counted 50
[2023-06-05 04:34] LABS: Anisocytosis 1+; Hypochromasia 1+; Platelet Estimate Decreased (Adequate); Schistocytes None Seen
[2023-06-05 05:07] LABS: Hepatitis C Virus Antibody Negative (Negative)
[2023-06-05 05:10] LABS: HAV RESULT Negative (Negative); Hepatitis B Core IgM Result Negative (Negative); Hepatitis B Surface Antigen Negative (Negative)
[2023-06-05] MEDS: DOXYCYCLINE 100 MG/NS 100 ML 100 MG/100 ML BAG IVPB ×2 (05:34→16:55)
[2023-06-05] MEDS: chlordiazePOXIDE (*CRX) 10 MG CAPSULE PO ×3 (05:35→21:21)
[2023-06-05] MEDS: THIAMINE HCL 100 MG TABLET PO (09:19)
[2023-06-05] MEDS: FUROSEMIDE INJ 40 MG/4 ML VIAL IV PUSH ×2 (09:26→16:55)
[2023-06-05] MEDS: FOLIC ACID 1 MG TABLET PO (14:18)
[2023-06-05] MEDS: allopurinoL 100 MG TABLET PO (14:18)
[2023-06-05 16:15] LABS: Pneumococcal Antigen Urine Not Detected (Not Detected)
--- NOTE | 2023-06-05 17:38 | PM.IMPN ---
Progress Note: A&P Assessment and Plan (1) Acute respiratory failure with hypoxia and hypercapnia: Code(s): J96.01 - Acute respiratory failure with hypoxia; J96.02 - Acute respiratory failure with hypercapnia Status: Acute Assessment and Plan: Patient presented with acute hypoxic respiratory failure with mild component of hypercapnic respiratory failure Active wheezing noted on arrival. Hx of smoking 2 cigars a month and no hx of COPD/asthma Associated with sepsis due to pneumonia +/- asthma/COPD. ABG 7.29/48/66. Bronchodilators started. Patient did receive 1 dose of IV Solu-Medrol. BiPAP started in ER and he tolerating it well Follow up ABG 7.40/40/126 on bipap Continue to use BiPAP as needed while awake and scheduled at sleep and with naps. Continue bronchodilators Weaned off O2 Check apnea link tonight (2) Sepsis: Qualifiers: Acute respiratory failure type: with hypoxia Sepsis acute organ dysfunction status: with acute organ dysfunction Sepsis type: sepsis due to unspecified organism Severe sepsis acute organ dysfunction type: acute respiratory failure Severe sepsis shock status: without septic shock Qualified Code(s): A41.9 - Sepsis, unspecified organism; R65.20 - Severe sepsis without septic shock; J96.01 - Acute respiratory failure with hypoxia Code(s): A41.9 - Sepsis, unspecified organism Status: Acute Assessment and Plan: Sepsis criteria met with fever, relative leukocytosis (patient normally leukopenic), bandemia of 11%, tachycardia and tachypnea Patient received 1 L fluid bolus but further IV fluid held due to concern for possible CHF. CXR showing cardiomegaly with mild pulmonary edema and small pleural effusion BCx NGTD Influenza, RSV and COVID PCR were negative. Clinically felt pt with sepsis from pneumonia than CHF. Empiric antibiotic therapy with Rocephin and azithromycin started (05/31). MRSA nasal swab negative. Repeat influenza negative. Fevers waning and bandemia better. Repeat CXR 06/02 showing CMG with increasing pulm edema and small pleural effusions Continue Rocephin. Change to Doxycycline. Lasix IV added to improve fluid status. (3) Pneumonia: Code(s): J18.9 - Pneumonia, unspecified organism Status: Acute Assessment and Plan: Urine antigens pending. As above (4) CHF (congestive heart failure): Qualifiers: Heart failure type: diastolic Code(s): I50.9 - Heart failure, unspecified Status: Acute Assessment and Plan: Patient received 1 L fluid bolus but further fluid bolus was withheld in the ER due to the patient's history of diastolic CHF CXR concerning for pulmonary edema. Patient with trace edema noted so consider mild fluid overload since being off his lasix BP stable. Lasix IV added. (5) ETOH abuse: Code(s): F10.10 - Alcohol abuse, uncomplicated Status: Acute Assessment and Plan: Patient does have a history of heavy alcohol use. Alcohol level is <10. Thiamine and Folate started. CIWA protocol ordered CIWA elevated but felt related to fever and not for withdrawal per se Will monitor for signs of alcohol withdrawal with CIWA protocol Continue low dose Librium. Ativan available prn Educated about the benefits of abstaining from alcohol use (6) Essential (primary) hypertension: Code(s): I10 - Essential (primary) hypertension Status: Acute Assessment and Plan: Patient's blood pressure was reviewed on 06/04 Blood pressure remains well controlled. Continue Lasix. Continue to hold Lisinopril and Norvasc (7) Fatty liver: Code(s): K76.0 - Fatty (change of) liver, not elsewhere classified Status: Acute Assessment and Plan: Patient has fatty liver as noted on his past medical history. RUQ US showing nodular liver surface and echogenicity related to steatosis. Patient with chronic thrombocytopenia since 2021 possibly related to al
--- NOTE | 2023-06-05 18:33 | PC.NURSE ---
This patient, Edwin Raines, was transferred to [facility] via wheelchair without issue on 06/05/23 at 1820. Personal belongings sent with patient. Report given to Britt Rubio. Appropriate documentation sent with patient.
[2023-06-05] MEDS: MELATONIN 5 MG TABLET PO (21:21)
[2023-06-06] VITALS (8 sets, daily range): BP systolic 118–124; BP diastolic 64–75; PULSE 81–98; RESP 20; TEMP 36.4; O2SAT 93–95
--- NOTE | 2023-06-06 03:02 | PCRCNOTE ---
Patient is on an overnight sleep study, therefore his 0200 breathing treatment was not given. Treatment will resume at 0800.
[2023-06-06 05:17] LABS: Legionella pneumophila Ag Ur Not Detected (Not Detected)
[2023-06-06] MEDS: chlordiazePOXIDE (*CRX) 10 MG CAPSULE PO ×2 (05:37→14:43)
[2023-06-06] MEDS: DOXYCYCLINE 100 MG/NS 100 ML 100 MG/100 ML BAG IVPB (05:38)
[2023-06-06 06:00] LABS: Alanine Aminotransferase 45 U/L (6-50); Albumin Level 3.2 g/dL (3.5-5.1); Alkaline Phosphatase 79 U/L (38-126); Anion Gap 2 mmol/L (4-12); Aspartate Amino Transferase 100 U/L (17-59); Bilirubin,Total 1.5 mg/dL (0.2-1.3); Blood Urea Nitrogen 17 mg/dL (9-20); Calcium 8.6 mg/dL (8.4-10.2); Carbon Dioxide 31 mmol/L (22-30); Chloride 99 mmol/L (98-107); Estimated CRCL calculation 139 ml/min; Estimated Glomerular Filt Rate > 60; Glucose 85 mg/dL (65-110); Sodium 132 mmol/L (137-145)
[2023-06-06] MEDS: POTASSIUM CHLORIDE 20 MEQ ER TABLET 40 MEQ PO (08:48)
[2023-06-06] MEDS: THIAMINE HCL 100 MG TABLET PO (08:49)
[2023-06-06] MEDS: FERROUS SULFATE 325 MG TABLET DR PO (08:49)
[2023-06-06] MEDS: FUROSEMIDE INJ 40 MG/4 ML VIAL IV PUSH (08:49)
[2023-06-06] MEDS: POTASSIUM CHLORIDE 20 MEQ ER TABLET PO (09:44)
[2023-06-06] MEDS: ALBUTEROL SULFATE NEB 2.5 MG/3 ML INH 5 MG INHALATION (09:50)
[2023-06-06] MEDS: IPRATROPIUM BR 0.02% INH SOLN 0.5 MG/2.5 ML VIAL INHALATION (09:50)
[2023-06-06] MEDS: FOLIC ACID 1 MG TABLET PO (14:43)
[2023-06-06] MEDS: allopurinoL 100 MG TABLET PO (14:43)
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
--- NOTE | 2023-06-06 19:25 | PM.DS ---
DS: Admitting Diagnosis Discharge Date 06/06/23 Admitting Diagnosis Shortness of breath DS: Discharge Diagnosis Discharge Diagnosis (1) Acute respiratory failure with hypoxia and hypercapnia: Code(s): J96.01 - Acute respiratory failure with hypoxia; J96.02 - Acute respiratory failure with hypercapnia Status: Acute (2) Sepsis: Qualifiers: Acute respiratory failure type: with hypoxia Sepsis acute organ dysfunction status: with acute organ dysfunction Sepsis type: sepsis due to unspecified organism Severe sepsis acute organ dysfunction type: acute respiratory failure Severe sepsis shock status: without septic shock Qualified Code(s): A41.9 - Sepsis, unspecified organism; R65.20 - Severe sepsis without septic shock; J96.01 - Acute respiratory failure with hypoxia Code(s): A41.9 - Sepsis, unspecified organism Status: Acute (3) Pneumonia: Code(s): J18.9 - Pneumonia, unspecified organism Status: Acute (4) CHF (congestive heart failure): Qualifiers: Heart failure type: diastolic Code(s): I50.9 - Heart failure, unspecified Status: Acute (5) ETOH abuse: Code(s): F10.10 - Alcohol abuse, uncomplicated Status: Acute (6) Essential (primary) hypertension: Code(s): I10 - Essential (primary) hypertension Status: Acute (7) Fatty liver: Code(s): K76.0 - Fatty (change of) liver, not elsewhere classified Status: Acute DS: Summary Hospital Course Reason for hospitalization: 62yo male with alcoholism, HTN, diastolic dysfunction and gout here for SOB. Please see H&P for details. Hospital Course: Patient presented with acute hypoxic respiratory failure with mild component of hypercapnic respiratory failure. He was found to have an associated with sepsis due to pneumonia +/- asthma/COPD. ABG 7.29/48/66. Bronchodilators started. Patient did receive 1 dose of IV Solu-Medrol. BiPAP started in ER and he tolerating it well. Follow up ABG 7.40/40/126 on bipap. Sepsis criteria met with fever, relative leukocytosis (patient normally leukopenic), bandemia of 11%, tachycardia and tachypnea. Patient received 1 L fluid bolus but further IV fluid held due to concern for possible CHF. CXR showing cardiomegaly with mild pulmonary edema and small pleural effusion. BCx negative. Influenza, RSV and COVID PCR were negative. Clinically felt pt with sepsis from pneumonia than CHF. Empiric antibiotic therapy with Rocephin and azithromycin started. MRSA nasal swab negative. Repeat influenza negative. Fevers wanned and bandemia better. Repeat CXR 06/02 showing CMG with increasing pulm edema and small pleural effusions. Lasix IV added to improve fluid status. Patient does have a history of heavy alcohol use. Alcohol level is <10.?Thiamine and Folate started.? CIWA protocol ordered and was elevated but felt related to fever/sepsis and not for withdrawal per se. Low dose Librium added. The patient was educated about the benefits of abstaining from alcohol use. Patient has fatty liver as noted on his past medical history. RUQ US showing nodular liver surface and echogenicity related to steatosis. Patient with chronic thrombocytopenia since 2021 possibly related to alcohol itself and/or from liver disease. INR 1.4 on admission here. LFTs within normal limits. He did well and was close for discharge when he decided to sign himself out against medical advise. We did call in abx for the patient after discharge so he could complete a course. Status at Discharge Cognitive/behavioral status at discharge: stale Time Spent with Patient Time attestation: Total time spent providing and/or coordinating discharge services: 28 minutes Time spent: Less than 30 minutes Exam Narrative: AF 97.5 124/64 93 20 95% ra Gen - NARD Chest - CTA bilaterally, nml RR CV - RRR S1/S2. Abd - Soft, NT/ND, +BS Ext - 1-2+ pedal edema. Negative [facility] Psych - Nml mood and affec
== END 2023-06-06 14:45 | disposition left against medical advice (07) | DRG 871 ==
LOC: ANHED 19:05 → ANHIMU 21:19 → ANH2MED 06-05 18:22
PROVIDERS: Admitting Provider Internal Medicine; Emergency Provider Emergency Medicine; PCP Family Medicine; Visit Provider Internal Medicine
DX: A41.9 Sepsis, unspecified organism (principal); J18.9 Pneumonia, unspecified organism; J96.01 Acute respiratory failure with hypoxia; J96.02 Acute respiratory failure with hypercapnia; G93.40 Encephalopathy, unspecified; I50.32 Chronic diastolic (congestive) heart failure; I11.0 Hypertensive heart disease with heart failure; R65.20 Severe sepsis without septic shock; E86.9 Volume depletion, unspecified; K76.0 Fatty (change of) liver, not elsewhere classified; R73.01 Impaired fasting glucose; M1A.9XX0 Chronic gout, unspecified, without tophus (tophi); E66.9 Obesity, unspecified; F10.10 Alcohol abuse, uncomplicated; Z20.822 Contact with and (suspected) exposure to COVID-19
CPT/HCPCS: 36415; 36600; 71045; 76705; 80048; 80053; 80069; 80074; 80307; 81001; 82805; 83605; 83735; 83880; 85025; 85055; 85610; 85730; 87040; 87449; 87502; 87637; 87641; 87899; 93005; 93970; 94002; 94003; 94640; 94762; 96374; 99285; A9270; J0456; J0696; J1741; J1940; J2060; J2930; J3411; J7030; J7040

== ENCOUNTER 2023-06-30 16:05 | Outpatient (CLI) | payer OTHER, SELFPAY ==
--- NOTE | ~2023-06-30 | XR_ITS ---
[id number] 06/30/2023 16:36 Indication: Right knee pain Procedure: 3 views right knee Comparison: No prior studies for comparison. Findings: There is severe tricompartment osteoarthritis of the right knee. There is moderate joint ef fusion. No acute fracture or traumatic malalignment. Osteopenia. Impression: 1: Severe tricompartment osteoarthritis. Reviewed, dictated and finalized at location B. Impression: 1: Severe tricompartment osteoarthritis.
--- NOTE | ~2023-06-30 | XR_ITS ---
[id number] 06/30/2023 16:35 Indication: Right knee pain Procedure: 3 views right knee Comparison: No prior studies for comparison. Findings: There is moderate osteoarthritis of the right knee. Small joint effusion. No fracture or tr aumatic malalignment. Osteopenia. Impression: 1: Moderate tricompartment osteoarthritis. Reviewed, dictated and finalized at location B. Impression: 1: Moderate tricompartment osteoarthritis.
== END 2023-06-30 16:06 ==
PROVIDERS: PCP Family Medicine; Visit Provider Family Medicine
DX: M25.562 Pain in left knee (principal); M25.561 Pain in right knee; M17.0 Bilateral primary osteoarthritis of knee
CPT/HCPCS: 73560